=== PATIENT | female | born 1950 | race Caucasian/White ===

== ENCOUNTER 2020-02-13 15:59 | Emergency (ER) | payer MEDICARE, OTHER, SELFPAY ==
--- NOTE | 2020-02-13 16:26 | XR_ITS ---
WS: [id number] XR chest 1V portable [id number] REASON FOR EXAM: cough/congestion FINDINGS: Comparisons were made to May 14, 2014. The heart is not enlarged there is arteriosclerotic changes seen in the arch of the aorta. The lung manning are well aerated. There is no pneumonia, pleural effusion, pulmonary edema, no mass e ffect. XR/XR chest 1V portable [id number] IMPRESSION: Negative chest for active pathology Arteriosclerotic changes.
[2020-02-13 16:41] VITALS: BP 161/82; PULSE 82; RESP 20; TEMP 37.1; O2SAT 98; BMI 29.2
[2020-02-13 17:16] LABS: Basophils % 0.8 %; Eosinophils # 0.2 10^3/uL (0.0-0.8); Eosinophils % 3.2 %; Hematocrit 40.4 % (37.0-47.0); Hemoglobin 12.7 g/dL (11.5-15.3); Lymphocytes # 1.5 10^3/uL (0.8-4.8); Lymphocytes % 31.5 %; Mean Corpuscular HGB Conc 31.4 g/dL (30.0-36.0); Mean Corpuscular Hemoglobin 28.5 pg (28.0-34.0); Mean Corpuscular Volume 90.8 fL (81-99); Monocytes # 0.6 10^3/uL (0.2-0.9); Monocytes % 13.5 %; Neutrophils # 2.4 10^3/uL (1.8-7.7); Neutrophils % 50.8 %; Nucleated Red Blood Cells % 0 %; Platelet Count 279 10^3/cmm (130-400); Red Blood Count 4.45 10^6/uL (4.1-5.3); Red Cell Distribution Width 12.4 % (12.1-15.1); White Blood Count 4.7 10^3/uL (4.0-10.0)
[2020-02-13 17:40] LABS: Alanine Aminotransferase 14 U/L (0-33); Albumin Level 4.6 g/dL (3.5-5.2); Alkaline Phosphatase 72 IU/L (35-105); Anion Gap 15.9 (5-19); Aspartate Amino Transferase 19 U/L (0-32); Blood Urea Nitrogen 8 mg/dL (8-23); Calcium 9.8 mg/dL (8.5-10.5); Carbon Dioxide 29 mmol/L (22-29); Chloride 97 mmol/L (98-107); Glomerular Filtration Rate 83.2 mL/min (90-130); Glucose 110 mg/dL (65-115); Osmolality Calculated 283 mOsm/kg (285-295); Potassium 3.9 mmol/L (3.5-5.1); Sodium 138 mmol/L (136-145); Total Bilirubin 0.5 mg/dL (0.15-1.2); Total Protein 7.6 g/dL (6.6-8.7)
[2020-02-13 20:09] VITALS: BP 132/69; PULSE 73; RESP 18; O2SAT 96
[2020-02-13 21:17] VITALS: BP 162/79; PULSE 72; RESP 18; TEMP 36.9; O2SAT 97
--- NOTE | 2020-02-13 21:19 | W.ED.GENADLT ---
HPI - General Adult General: Chief complaint: Upper Respiratory Infection Stated complaint: sob/cough Time Seen by Provider: 02/13/20 21:13 History of Present Illness: HPI narrative: Patient with cough the last few days sinus drainage tickle in the throat. Denies any fever. Has history of allergies. Has not traveled to any endemic area or any area where covid 19 is present. Does not have any body aches. Cough is been somewhat nonproductive Onset (ago): day(s) Associated symptoms: Deny chest pain, dyspnea, fevers/chills, headache(s), nausea, rash or vomiting Review of Systems Const: Denies: fever, chills or body aches Eyes: Denies: change in vision or blurry vision ENMT: Reports: nasal discharge, nasal congestion and post nasal drip; Denies: throat pain Card: Denies: chest pain or shortness of breath on exertion Resp: Reports: non-productive cough; Denies: shortness of breath GI: Denies: abdominal pain, nausea or vomiting Musc: Denies: extremity pain Skin/Breast: Denies: rash Neuro: Denies: headache Psych: Denies: anxiety or depression Kenneth/Lymph: Denies: easy bruising PFSH ED PFSH: Social History Smoking and tobacco status: never smoked Physical Exam Narrative: EXAM NARRATIVE: Patient coughing while in room Const: COMMON NORMALS: no apparent distress, average body habitus and oriented x3 HENMT: COMMON NORMALS: normocephalic HEAD & SCALP: normal to inspection and normocephalic FACE & SINUS: sinus tenderness sphenoid and ethmoid Eye: COMMON NORMALS: conjunctivae normal GENERAL EYE: normal appearance of both eyes CONJUNCTIVA: Yes conjunctivae normal Neck/C-Spine: COMMON NORMALS: no JVD Chest: COMMONS NORMALS: inspection of chest normal Resp: COMMON NORMALS: normal respiratory effort and clear to auscultation bilaterally AUSCULTATION: clear to auscultation bilaterally Cardio: COMMON NORMALS: no JVD, regular rate and regular rhythm RATE: regular rate RHYTHM: regular rhythm GI: COMMON NORMALS: normal to inspection, nondistended, normoactive bowel sounds Extremity: COMMON NORMALS: normal to inspection and full ROM Neuro: COMMON NORMALS: oriented x3 Course Vital Signs: Vital signs: Vital Signs Temperature 98.8 F 02/13/20 16:41 Pulse Rate 73 02/13/20 20:09 Respiratory Rate 18 02/13/20 20:09 Blood Pressure 132/69 02/13/20 20:09 Pulse Oximetry 96 02/13/20 20:09 [facility] - General Adult Lab Data: Labs: Lab Results 02/13/20 02/13/20 Range/Units 16:58 16:58 WBC 4.7 (4.0-10.0) 10^3/ uL RBC 4.45 (4.1-5.3) 10^6/u L Hgb 12.7 (11.5-15.3) g/dL Hct 40.4 (37.0-47.0) % MCV 90.8 (81-99) fL MCH 28.5 (28.0-34.0) pg MCHC 31.4 (30.0-36.0) g/dL RDW 12.4 (12.1-15.1) % Plt Count 279 (130-400) 10^3/c mm MPV 10.0 (7.4-10.4) fL Neut % (Auto) 50.8 % Lymph % (Auto) 31.5 % Frontier % (Auto) 13.5 % Eos % (Auto) 3.2 % Baso % (Auto) 0.8 % Neut # (Auto) 2.4 (1.8-7.7) 10^3/u L Lymph # (Auto) 1.5 (0.8-4.8) 10^3/u L Frontier # (Auto) 0.6 (0.2-0.9) 10^3/u L Eos # (Auto) 0.2 (0.0-0.8) 10^3/u L Baso # (Auto) 0.0 (0.0-0.1) 10^3/u L Nucleated RBC % (a uto) 0 % Nucleated RBCs # 0.0 /100WBC Sodium 138 (136-145) mmol/L Potassium 3.9 (3.5-5.1) mmol/L Chloride 97 L (98-107) mmol/L Carbon Dioxide 29 (22-29) mmol/L Anion Gap 15.9 (5-19) BUN 8 (8-23) mg/dL Creatinine 0.7 (0.5-0.9) mg/dL GFR Calculation 83.2 L (90-130) mL/min Glucose 110 (65-115) mg/dL Calculated Osmolal ity 283 L (285-295) mOsm/k g Calcium 9.8 (8.5-10.5) mg/dL Total Bilirubin 0.5 (0.15-1.2) mg/dL AST 19 (0-32) U/L ALT 14 (0-33) U/L Alkaline Phosphata se 72 (35-105) IU/L Total Protein 7.6 (6.6-8.7) g/dL Albumin 4.6 (3.5-5.2) g/dL Globulin 3.0 (1.3-4.6) g/dL Discharge Plan Discharge Prescriptions: No Action clopidogrel 75 mg tablet 75 mg PO DAILY RF: 0 aspirin [Aspir-81] 81 mg Tablet,Delayed Release (Dr/Ec) 81 mg PO DAILY RF: 0 Fish Oil 300-1,000 mg Capsule 1 cap PO DAILY RF: 0 Nitrostat 0.4 mg Tablet, Sublingual 0.4 mg SUBLINGUAL Q5M PRN (Reason: Chest Pain) RF: 0 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
[2020-02-13] MEDS: sulfamethoxazole-trimeth DS 160-800 mg Tablet 1 TAB PO (21:28)
[2020-02-13] MEDS: benzonatate 100 mg Capsule 200 MG PO (21:28)
[2020-02-13 21:37] LABS: Influenza A by IFA Negative (Negative); Influenza B by IFA Negative (Negative)
[2020-02-13 22:00] VITALS: BP 159/76; PULSE 86; RESP 18; TEMP 37; O2SAT 94
== END 2020-02-13 22:02 | disposition home or self-care (01) ==
PROVIDERS: Physician Assistant; Emergency Provider Nurse Practitioner Family; Family Provider Internal Medicine; PCP Internal Medicine
DX: J06.9 Acute upper respiratory infection, unspecified (principal); R06.02 Shortness of breath; R05 Cough; R09.81 Nasal congestion; R09.82 Postnasal drip
CPT/HCPCS: 12345; 36415; 71045; 80053; 85025; 87804; 99281; 99283

== ENCOUNTER 2020-03-25 20:28 | Emergency (ER) | payer MEDICARE, OTHER, SELFPAY ==
--- NOTE | 2020-03-25 20:35 | XR_ITS ---
WS: [id number] LEFT TIBIA-FIBULA 2 VIEWS HISTORY: injury COMPARISON: None available. Comminuted fracture with displacement at the tibiotalar joint. Transverse fracture of the distal third of the fibula with the distal fracture site deviated medially . On the lateral projection the tibia is displaced anteriorly with respect to the talus and the fibula is displaced posteriorly with respect to the talus. There is an additional fracture through the tibia with avulsion of the posterior malleolus. XR/XR tibia fibula LT 2V [id number] IMPRESSION: 1. Acute trimalleolar fracture dislocation LEFT ankle. 2. Tibia is displaced anterior and the fibula is posterior with respect to the talus.
[2020-03-25 20:36] VITALS: BP 155/102; PULSE 101; RESP 18; TEMP 36.8; O2SAT 98; BMI 28.3
--- NOTE | 2020-03-25 20:36 | W.ED.LOWEXIN ---
Documented by User: JOMAR Teixeira 03/25/20 22:41 HPI - Extremity Injury (Lower) General: Chief Complaint: Extremity Injury, Lower Stated Complaint: ANKLE INJURY Time Seen by Provider: 03/25/20 20:35 Source: patient Mode of arrival: ambulatory Limitations: no limitations History of Present Illness: HPI Narrative: Patient comes in today for complaints of injury to the left lower extremity. Patient slipped on the grass and twisted her left lower leg. Patient reports pain and inability to bear weight to the left lower extremity. Patient has a history of coronary artery disease which she takes Plavix for. Patient appears well. Patient appears in moderate to severe pain. Review of Systems General: Reports: 10 or more systems reviewed and unremarkable except in HPI and below Musc: Reports: extremity pain (left lower leg) and extremity swelling [facility] ED PFSH: Social History Smoking and tobacco status: never smoked Physical Exam Const: COMMON NORMALS: no apparent distress and oriented x3 GENERAL APPEARANCE: cooperative HENMT: COMMON NORMALS: normocephalic, TM's normal bilaterally and external nose normal HEAD & SCALP: normal to inspection and normocephalic NOSE: external nose normal TYMPANIC MEMBRANE: TM's normal bilaterally MOUTH: oral and palatal mucosa normal THROAT: posterior oropharynx normal Eye: GENERAL EYE: normal appearance of both eyes Neck/C-Spine: COMMON NORMALS: full ROM Lymph: LYMPHATIC: no lymphadenopathy noted Chest: COMMONS NORMALS: inspection of chest normal Resp: COMMON NORMALS: normal respiratory effort EFFORT & INSPECTION: Yes able to speak in complete sentences Cardio: COMMON NORMALS: regular rate and regular rhythm RATE: regular rate RHYTHM: regular rhythm GI: COMMON NORMALS: non-tender : COMMON NORMALS: Yes no CVA tenderness BLADDER/KIDNEY EXAM: Yes no CVA tenderness Back/Pelvis: COMMON NORMALS: no CVA tenderness and thoracic and lumbar spine normal to inspection Extremity: COMMON NORMALS: normal to inspection NARRATIVE EXTREMITY EXAM: Left lower extremity has swelling and ecchymosis to the lateral lower leg. Pulses are intact in the dorsal pedis. Prompt capillary refill is noted. Neuro: COMMON NORMALS: oriented x3 and moves all extremities Psych: COMMON NORMALS: mental status grossly normal and cooperative Skin: COMMON NORMALS: no rashes or lesions noted GENERAL SKIN EXAM: no rashes or lesions noted Course ED course: 2099, reviewed xray with Dr. Sweeney regarding fracture dislocation of distal tib/fib. agreed with assessment and need for reduction of joint. Vital Signs: Vital signs: Vital Signs Temperature 98.2 F 03/25/20 20:36 Pulse Rate 69 03/25/20 23:38 Respiratory Rate 20 H 03/25/20 23:38 Blood Pressure 148/80 03/25/20 23:38 Pulse Oximetry 99 03/25/20 23:38 MDM - Extremity Injury (Lower) Lab Data: Labs: Lab Results 03/25/20 03/25/20 Range/Units 21:08 21:08 WBC 7.3 (4.0-10.0) 10^3/ uL RBC 4.13 (4.1-5.3) 10^6/u L Hgb 12.1 (11.5-15.3) g/dL Hct 37.1 (37.0-47.0) % MCV 89.8 (81-99) fL MCH 29.3 (28.0-34.0) pg MCHC 32.6 (30.0-36.0) g/dL RDW 12.3 (12.1-15.1) % Plt Count 286 (130-400) 10^3/c mm MPV 9.6 (7.4-10.4) fL Neut % (Auto) 56.1 % Lymph % (Auto) 34.5 % Campbell % (Auto) 7.0 % Eos % (Auto) 1.4 % Baso % (Auto) 0.5 % Neut # (Auto) 4.1 (1.8-7.7) 10^3/u L Lymph # (Auto) 2.5 (0.8-4.8) 10^3/u L Campbell # (Auto) 0.5 (0.2-0.9) 10^3/u L Eos # (Auto) 0.1 (0.0-0.8) 10^3/u L Baso # (Auto) 0.0 (0.0-0.1) 10^3/u L Nucleated RBC % (a uto) 0 % Nucleated RBCs # 0.0 /100WBC Sodium 137 (136-145) mmol/L Potassium 3.4 L (3.5-5.1) mmol/L Chloride 97 L (98-107) mmol/L Carbon Dioxide 23 (22-29) mmol/L Anion Gap 20.4 H (5-19) BUN 11 (8-23) mg/dL Creatinine 0.6 (0.5-0.9) mg/dL GFR Calculation 99.1 (90-130) mL/min Glucose 110 (65-115) mg/dL Calculated Osmolal ity 281 L (285-295) mOsm/k g Calcium 9.7 (8.5-10.5) mg/dL Total Bilirubin 0.4 (0.15-1.2) mg/dL AST 23 (0-32) U/L ALT 19 (0-33) U/L Alkaline Phosphata se 65 (35-105) IU/L Total Protein 7.7 (6.6-8.7) g/dL Albumin 4.4 (3.5-5.2) g/dL Globulin 3.3 (1.3-4.6) g/dL Discharge Plan Discharge Patient Disposition: Home, Self-Care Clinical Impression: Ankle fracture Qualifiers: Encounter type: initial encounter Fracture type: closed Laterality: left Qualified Code(s): S82.892A - Other fracture of left lower leg, initial encounter for closed fracture Condition: Stable Prescriptions: New Percocet 5-325 mg tablet 1 tab PO Q6H PRN (Reason: pain) Qty: 20 RF: 0 No Action clopidogrel 75 mg tablet 75 mg PO DAILY RF: 0 Aspir-81 81 mg Tablet,Delayed Release (Dr/Ec) 81 mg PO DAILY RF: 0 Fish Oil 300-1,000 mg Capsule 1 cap PO DAILY RF: 0 Nitrostat 0.4 mg Tablet, Sublingual 0.4 mg SUBLINGUAL Q5M PRN (Reason: Chest Pain) RF: 0 Tessalon Perles 100 mg capsule 100 mg PO TID PRN (Reason: cough) Qty: 20 RF: 0 Discharge Orders: Discharge Order (Routine); Ordered 03/25/20 Ordered By: Bert Sweeney Referrals: Lisha Ly MD [Physician] - 4-7 days Manuel Agarwal DO [Primary Care Provider] - Discharge Diet: Advance as tolerated Discharge Activity: Limit activity as instructed Patient Instructions: Ankle Fracture (ED) Activity Restrictions/Additional Instructions: No weightbearing for the left lower extremity. Use crutches. Stay in splint until seen by orthopedics. Ice frequently. you will need to call tomorrow for an appointment this week regarding your ankle fracture. Return for worsening pain despite treatment, numbness or tingling, other concerning symptoms. 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 Documented by User: Bert Sweeney DO 03/26/20 00:50 HPI - Extremity Injury (Lower) General: Chief Complaint: Extremity Injury, Lower Stated Complaint: ANKLE INJURY Time Seen by Provider: 03/25/20 20:35 [facility] ED PFSH: Social History Smoking and tobacco status: never smoked Procedures Procedural Sedation Indication: fracture/dislocation reduction ASA Class: II Preparation: pig conveyor operator applied, pulse oximeter, supplemental O2 applied, suction/airway equipment at bedside and IV secured Midazolam: IV Midazolam dose (mg): 1 IV Etomidate dose (mg): 15 Patient Tolerated Procedure: well and no complications Complications: none Course Vital Signs: Vital signs: Vital Signs Temperature 98.2 F 03/25/20 20:36 Pulse Rate 69 03/25/20 23:38 Respiratory Rate 20 H 03/25/20 23:38 Blood Pressure 148/80 03/25/20 23:38 Pulse Oximetry 99 03/25/20 23:38 MDM - Extremity Injury (Lower) MDM Narrative: Medical decision making narrative: This patient was originally seen by JOMAR Blackwell. I agree with his history, exam and workup. I have evaluated her as well. she has a fracture dislocation of the left ankle. It was reduced to good alignment. Her pain is much improved. She is in a posterior splint with medial lateral stirrup. She has good sensation. She will be allowed discharge to follow-up as an outpatient for probable ORIF. She had some pain after transferring to the car. She was given an injection of morphine and dispensed to Percocet until she can get her Percocet filled in the morning. Lab Data: Labs: Lab Results 03/25/20 03/25/20 Range/Units 21:08 21:08 WBC 7.3 (4.0-10.0) 10^3/ uL RBC 4.13 (4.1-5.3) 10^6/u L Hgb 12.1 (11.5-15.3) g/dL Hct 37.1 (37.0-47.0) % MCV 89.8 (81-99) fL MCH 29.3 (28.0-34.0) pg MCHC 32.6 (30.0-36.0) g/dL RDW 12.3 (12.1-15.1) % Plt Count 286 (130-400) 10^3/c mm MPV 9.6 (7.4-10.4) fL Neut % (Auto) 56.1 % Lymph % (Auto) 34.5 % Campbell % (Auto) 7.0 % Eos % (Auto) 1.4 % Baso % (Auto) 0.5 % Neut # (Auto) 4.1 (1.8-7.7) 10^3/u L Lymph # (Auto) 2.5 (0.8-4.8) 10^3/u L Campbell # (Auto) 0.5 (0.2-0.9) 10^3/u L Eos # (Auto) 0.1 (0.0-0.8) 10^3/u L Baso # (Auto) 0.0 (0.0-0.1) 10^3/u L Nucleated RBC % (a uto) 0 % Nucleated RBCs # 0.0 /100WBC Sodium 137 (136-145) mmol/L Potassium 3.4 L (3.5-5.1) mmol/L Chloride 97 L (98-107) mmol/L Carbon Dioxide 23 (22-29) mmol/L Anion Gap 20.4 H (5-19) BUN 11 (8-23) mg/dL Creatinine 0.6 (0.5-0.9) mg/dL GFR Calculation 99.1 (90-130) mL/min Glucose 110 (65-115) mg/dL Calculated Osmolal ity 281 L (285-295) mOsm/k g Calcium 9.7 (8.5-10.5) mg/dL Total Bilirubin 0.4 (0.15-1.2) mg/dL AST 23 (0-32) U/L ALT 19 (0-33) U/L Alkaline Phosphata se 65 (35-105) IU/L Total Protein 7.7 (6.6-8.7) g/dL Albumin 4.4 (3.5-5.2) g/dL Globulin 3.3 (1.3-4.6) g/dL Discharge Plan Discharge Patient Disposition: Home, Self-Care Clinical Impression: Ankle fracture Qualifiers: Encounter type: initial encounter Fracture type: closed Laterality: left Qualified Code(s): S82.892A - Other fracture of left lower leg, initial encounter for closed fracture Condition: Stable Prescriptions: New Percocet 5-325 mg tablet 1 tab PO Q6H PRN (Reason: pain) Qty: 20 RF: 0 No Action clopidogrel 75 mg tablet 75 mg PO DAILY RF: 0 Aspir-81 81 mg Tablet,Delayed Release (Dr/Ec) 81 mg PO DAILY RF: 0 Fish Oil 300-1,000 mg Capsule 1 cap PO DAILY RF: 0 Nitrostat 0.4 mg Tablet, Sublingual 0.4 mg SUBLINGUAL Q5M PRN (Reason: Chest Pain) RF: 0 Tessalon Perles 100 mg capsule 100 mg PO TID PRN (Reason: cough) Qty: 20 RF: 0 Discharge Orders: Discharge Order (Routine); Ordered 03/25/20 Ordered By: Bert Sweeney Referrals: Lisha Ly MD [Physician] - 4-7 days Manuel Agarwal DO [Primary Care Provider] - Discharge Diet: Advance as tolerated Discharge Activity: Limit activity as instructed Patient Instructions: Ankle Fracture (ED) Activity Restrictions/Additional Instructions: No weightbearing for the left lower extremity. Use crutches. Stay in splint until seen by orthopedics. Ice frequently. you will need to call tomorrow for an appointment this week regarding your ankle fracture. Return for worsening pain despite treatment, numbness or tingling, other concerning symptoms. 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
[2020-03-25 20:46] VITALS: RESP 16; O2SAT 96
[2020-03-25] MEDS: morphine 4 mg/mL SDV 1 mL 2 MG IVP (20:46)
[2020-03-25] MEDS: ondansetron 2 mg/ML SDV 2 mL 4 MG IVP (20:47)
--- NOTE | 2020-03-25 21:02 | XR_ITS ---
WS: [id number] PELVIS: AP VIEW SUBMITTED HISTORY: fall COMPARISON: 02/08/2012 Possible avulsion fracture from the greater trochanter. There is an osseous or calcific density in th e soft tissues lateral to the greater tuberosity which was not present on the prior study. XR/XR pelvis 1-2V* [id number] IMPRESSION: Possible avulsion fracture in the soft tissues just lateral to the LEFT greater trochanter. This was not present on the prior study. If patient has continued pain at the LEFT hip consider follow-up radiographs or CT of the LEFT hip.
--- NOTE | 2020-03-25 21:02 | XR_ITS ---
WS: [id number] PORTABLE CHEST HISTORY: fall COMPARISON: 02/13/2020 Mild pulmonary hyperexpansion. No pneumonia. No pleural effusion or pneumothorax. Cardiac size: Normal. Mediastinum/Aorta: Normal mediastinum. No osseous abnormality seen. XR/XR chest 1V portable [id number] IMPRESSION: Chronic emphysema with no pneumonia.
[2020-03-25 21:14] LABS: Basophils % 0.5 %; Eosinophils # 0.1 10^3/uL (0.0-0.8); Eosinophils % 1.4 %; Hematocrit 37.1 % (37.0-47.0); Hemoglobin 12.1 g/dL (11.5-15.3); Lymphocytes # 2.5 10^3/uL (0.8-4.8); Lymphocytes % 34.5 %; Mean Corpuscular HGB Conc 32.6 g/dL (30.0-36.0); Mean Corpuscular Hemoglobin 29.3 pg (28.0-34.0); Mean Corpuscular Volume 89.8 fL (81-99); Mean Platelet Volume 9.6 fL (7.4-10.4); Monocytes # 0.5 10^3/uL (0.2-0.9); Neutrophils # 4.1 10^3/uL (1.8-7.7); Neutrophils % 56.1 %; Nucleated Red Blood Cells % 0 %; Platelet Count 286 10^3/cmm (130-400); Red Blood Count 4.13 10^6/uL (4.1-5.3); Red Cell Distribution Width 12.3 % (12.1-15.1); White Blood Count 7.3 10^3/uL (4.0-10.0)
--- NOTE | 2020-03-25 21:14 | XR_ITS ---
WS: [id number] LEFT ANKLE: 2 VIEW(S) TECHNIQUE: AP and lateral. HISTORY: post-reduction COMPARISON: 03/25/2020 Status post reduction of the fracture dislocation. Significant improvement in alignment. Distal tibia and fibula are now in normal alignment with the ta constantino. Fracture dislocation alignment of the distal fibula and tibia with the talus have been improved. Large amount of soft tissue edema around the ankle. XR/XR ankle LT 2V [id number] IMPRESSION: Significant improvement in the fracture dislocation alignment since the study asuncion hairston the same day.
[2020-03-25] MEDS: midazolam 1 mg/mL INJ 2 mL IVP (21:45)
[2020-03-25 21:49] LABS: Alanine Aminotransferase 19 U/L (0-33); Albumin Level 4.4 g/dL (3.5-5.2); Alkaline Phosphatase 65 IU/L (35-105); Anion Gap 20.4 (5-19); Aspartate Amino Transferase 23 U/L (0-32); Blood Urea Nitrogen 11 mg/dL (8-23); Calcium 9.7 mg/dL (8.5-10.5); Carbon Dioxide 23 mmol/L (22-29); Chloride 97 mmol/L (98-107); Globulin 3.3 g/dL (1.3-4.6); Glomerular Filtration Rate 99.1 mL/min (90-130); Glucose 110 mg/dL (65-115); Osmolality Calculated 281 mOsm/kg (285-295); Potassium 3.4 mmol/L (3.5-5.1); Sodium 137 mmol/L (136-145); Total Bilirubin 0.4 mg/dL (0.15-1.2); Total Protein 7.7 g/dL (6.6-8.7)
--- NOTE | 2020-03-25 21:50 | PC.NURSE ---
Pt's left ankle reduced by MD. Pt. tolerated well. Post reduction x-ray in progress at bedside
[2020-03-25] MEDS: sodium chloride 0.9% 1,000 ML 250 ML IV (21:51)
[2020-03-25 21:53] VITALS: BP 178/100; PULSE 75; RESP 17; O2SAT 98
[2020-03-25] MEDS: HYDROcodone-acetaminophen 7.5-325 mg Tablet 1 TAB PO (22:55)
[2020-03-25 23:37] VITALS: RESP 20
[2020-03-25] MEDS: morphine 4 mg/mL SDV 1 mL IM (23:37)
[2020-03-25 23:38] VITALS: BP 148/80; PULSE 69; RESP 20; O2SAT 99
--- NOTE | 2020-03-27 11:29 | DCPLANNER ---
workshop manager had message to schedule a follow up appointment for patient with ortho. workshop manager called the ortho clinic, spoke with Pat, gave clinic patients information. workshop manager was told that patients information would be printed and reviewed. Clinic will call director case and patient with appointment information.
--- NOTE | 2020-03-29 12:47 | DCPLANNER ---
Patient had a follow up appointment scheduled for 03.28.[facility] with [facility]. Gallardo. Patient did attend the appointment.
== END 2020-03-25 23:40 | disposition home or self-care (01) ==
PROVIDERS: Nurse Practitioner Family; Emergency Provider Emergency Medicine; Family Provider Internal Medicine; PCP Internal Medicine
DX: S82.852A Displaced trimalleolar fracture of left lower leg, initial encounter for closed fracture (principal); W01.0XXA Fall on same level from slipping, tripping and stumbling without subsequent striking against object, initial encounter; Z79.02 Long term (current) use of antithrombotics/antiplatelets; Z79.82 Long term (current) use of aspirin
CPT/HCPCS: 12345; 27818; 71045; 72170; 73590; 73600; 80053; 85025; 96372; 96374; 96375; 99282; 99283; 99284; J2250; J2270; J2405; J3490; J7030

== ENCOUNTER 2020-03-28 16:42 | Outpatient (CLI) | payer MEDICARE, OTHER, SELFPAY | END 2020-03-28 16:43 | disposition home or self-care (01) | LOC: SPT 16:45 | PROVIDERS: Family Provider Internal Medicine; PCP Internal Medicine; Visit Provider Orthopaedic Surgery | DX: Z46.89 Encounter for fitting and adjustment of other specified devices (principal); S82.402D Unspecified fracture of shaft of left fibula, subsequent encounter for closed fracture with routine healing; S82.432D Displaced oblique fracture of shaft of left fibula, subsequent encounter for closed fracture with routine healing; X58.XXXD Exposure to other specified factors, subsequent encounter | CPT/HCPCS: L4361 ==

== ENCOUNTER → 2020-04-04 15:27 | Outpatient (BNVA) | payer MEDICARE, OTHER, SELFPAY | PROVIDERS: Family Provider Internal Medicine; PCP Internal Medicine; Visit Provider Orthopaedic Surgery | DX: S82.842A Displaced bimalleolar fracture of left lower leg, initial encounter for closed fracture (principal); S82.852A Displaced trimalleolar fracture of left lower leg, initial encounter for closed fracture | CPT/HCPCS: 73610 ==

== ENCOUNTER 2020-04-09 10:25 | Day surgery (SDC) | payer MEDICARE, OTHER, SELFPAY ==
[2020-04-04 12:32] VITALS: BMI 29.2
[2020-04-09] VITALS (11 sets, daily range): BP systolic 130–170; BP diastolic 68–82; PULSE 64–73; RESP 15–20; TEMP 36.1–36.6; O2SAT 93–99
--- NOTE | 2020-04-09 | SCC_ITS ---
Procedure Done: Open reduction internal fixation left lateral malleolus fracture 22.1 seconds of fluoroscopic guidance, for a cumulative dose of 1.20 mGy, was provided to Dr. Gallardo by the radiology department. C-arm images of the LEFT ankle were saved for the patient's permanent record. GUTHRI[facility]ORT[facility] MEDICAL CENTERGeoffrey
[2020-04-09] MEDS: midazolam 1 mg/mL INJ 2 mL 2 MG IVP (09:10)
[2020-04-09] MEDS: sodium chloride 0.9% 1,000 ML 30 ML IV (12:05)
--- NOTE | 2020-04-09 12:06 | ANES.PREANE2 ---
Pre-Anesthetic Assessment Pre-Anesthetic Assessment: Height/Weight: Height 1.6 m Weight 74.843 kg Temp Pulse Resp BP Pulse Ox 97 F L 65 18 170/75 97 04/09/20 11:42 04/09/20 11:42 04/09/20 11:42 04/09/20 11:42 04/09/20 11:42 Preop Diagnosis: left bimallolar ankle fracture Proposed Procedure: Operation Date: 04/09/20 13:25 Proposed Procedures p ORIF Left Fibular shaft poss syndesmosis repair [id number] S82.842A s93.439A(Left) - Ludwin Gallardo DO Familial anesthetic complications: trouble waking up Plavix 10 days ago Was Beta Sea taken within 24 hours: N/A Last intake: Intake Last Liquid Date 04/08/20 Last Liquid Time 23:50 Last Solid Date 04/08/20 Last Solid Time 22:00 Social: Social History: No alcohol and No tobacco Exam: Pre-Anes Outpt Exam: alert, oriented x 3, clear to auscultation bilaterally and regular rate & rhythm Airway: Cervical ROM: WNL MP: 3 Dentition: False Pulmonary: Pulmonary: None reported CV/HEM: CV/HEM: Afib, CAD (3 stents; last one 2004) and [place] (X3) : : None reported Hepatic: Hepatic: None reported GI: GI: None reported Metabolic: Metabolic: None reported Musc/skel: Comments: L fibular fracture Neuropsych: Neuropsych: None reported Anesthetic Plan: ASA status: 3 Anesthesia: General and Regional (specify below) (popliteal) Risk of > 500 ml blood loss (7ml/kg in children): No Meds/Allergies Current Medications: Current Medications Generic Name Dose Route Start Last Admin Trade Name Freq PRN Reason Stop Dose Admin Sodium Chloride 1,000 mls @ 30 ml s/hr 04/09/20 11:15 04/09/20 12:05 Sodium Chloride 0.9% IV 04/10/20 11:14 30 mls/hr .Q24H SULEMAN Administration PFSH Anesthesia PFSH: Social History Smoking and tobacco status: never smoked Alcohol intake: never Data Anesthesia Cardiac Studies: No Data to Display
[2020-04-09] MEDS: fentaNYL 50 mcg/mL INJ 2mL IVP ×2 (12:15→14:52)
--- NOTE | 2020-04-09 12:27 | ANES.PROC ---
Anesthesia Procedures Procedure/Date: 04/09/20 Nerve Block ^: Nerve Block 1: Main Anesthesia: general anesthesia Time Out Performed: Yes Consent: requested by attending/covering physician, from patient, risks and benefits reviewed and patient agrees to proceed Nerve block location: popliteal (L) Anesthesia monitors applied: pulse oximetry, BP cuff and oxygen Nerve block position: supine Anesthetic Used: ropivicaine 0.5% and with bicarb (4) Amount of anesthesia used (mL): 20 Ultrasound used to: recognize landmarks Nerve Stimulator Used?: No Interscalene/Femoral BLK: 4 stimuplex 21 g needle used for position and inplane approach Injection: neg aspiration of heme and paresthesia +/- Patient Tolerated Procedure: well Complications: none
[2020-04-09] MEDS: cefUROXime 1,500 MG in sodium chloride 0.9% (plus) 50 ML 100 MG IV (13:12)
--- NOTE | 2020-04-09 13:40 | SUR.OPER ---
Family Notified Of Patient's Status Via Phone.
[2020-04-09] MEDS: neomycin-poly-bacitracin oint 28 gm 1 APPLIC TOPICAL (13:52)
--- NOTE | 2020-04-09 14:26 | XR_ITS ---
WS: [id number] C-ARM RADIOGRAPHS LEFT ANKLE; 4 IMAGES HISTORY: OR PICS COMPARISON: None available. Plate and screw fixation stabilizing the distal fibular fracture in good alignment. There is a syndes mosis screw with button attachment. XR/XR ankle LT min 3V* [id number] IMPRESSION: Status post ORIF distal fibular fracture.
--- NOTE | 2020-04-09 14:45 | SUR.PHASEI ---
1440 PATIENT TO PACU AT THIS TIME FROM OR. ORAL AIRWAY IN PLACE, SPO2 97% ON SIMPLE MASK AT 8L. DRESSING INTACT TO LEFT ANKLE.
--- NOTE | 2020-04-09 14:58 | SUR.PHASEI ---
1452 ORAL AIRWAY REMOVED AT THIS TIME. SPO2 97% ON SIMPLE MASK AT 8L. RR EVEN AND UNLABORED.
--- NOTE | 2020-04-09 15:11 | SUR.PHASEI ---
[id number] PATIENT TO OPS AT THIS TIME. RR EVEN AND UNLABORED. TOLERATING ICE CHIPS, DENIES NAUSEA. PAIN 6/10, WANTING A PAIN PILL IN OPS. DRESSING INTACT TO LEFT ANKLE, CAP REFILL INTACT.
[2020-04-09] MEDS: oxyCODONE-APAP 5-325 mg Tablet 1 TAB PO (15:50)
--- NOTE | 2020-04-11 21:33 | P.OP_ITS ---
Operative Report Date of procedure: April 09, 2020 Pre-op Diagnosis: left bimalleolar ankle fracture Post-op diagnosis: other Post-op Diagnosis: left bimalleolar ankle fracture (posterior malleolus and lateral malleolus?Brenner C fracture of distal fibula Sprain distal tibiofibular joint Post-op Findings: satisfactory reduction of displaced lateral malleolus fracture Good alignment of posterior malleolar fracture satisfactory placement of implants Symmetric spacing about ankle mortise Procedure Done: Open reduction internal fixation left lateral malleolus fracture closed treatment without manipulation of left posterior malleolar fracture Open reduction internal fixation left distal tibiofibular joint Implants: Rachana on third semitubular plate and screws Arthrex tight rope button suspension device Specimens removed/disposition: none Pathology: none sent Surgeon: Ludwin Gallardo Anesthesia: General and Nerve Block (preoperative popliteal block for postoper ative pain relief) Estimated blood loss (mL): 10 Tourniquet time (min): 45 (300 mmHg pressure) Complications: no apparent complications Findings: see above postoperative findings Condition: stable Disposition: PACU Brief History: 70-year-old white female who slipped and fell on 03/25/2021 [place] she sustained a bimalleolar ankle fracture dislocation. Closed reduction was performed in the emergency room. She was seen in the orthopedic clinic in our he had developed swelling in fracture bleb so her surgery needed to be delayed until her skin was appropriate for surgery. She was evaluated on the date of surgery and found to have a marked decreased swelling fracture bleb on the medial aspect of her ankle has resolved. Risks, benefits has complications surgery discussed the patient. Risks include aren't limited to infection, nerve/blood vessel/tendon injury, failure fractures to heal potential loss reduction, complications with hardware such as breakage or loosening. May develop posttraumatic arthritis in her ankle as result of her injury. Medical complications can include blood clots, heart attack, stroke risk up to including . All questions were answered patient agreeable to proceed with surgery. Procedure: Patient identified. Surgical site was signed. Surgical permit was signed. Anesthesia team performed a preoperative popliteal block for postoperative pain relief. Patient received 1.5 g of Zinacef intravenously for surgical prophylaxis. She was taken to the operating room. She is placed supine on the operating room table. She is placed under general anesthesia without difficulty. A tourniquet was placed but the upper aspect of the left lower extremity. The patient sterilely prepped draped usual fashion. The operative limb was exsanguinated using Esmarch bandage tourniquet inflated to 300 mmHg pressure. A 15 cm incision was made over the lateral malleolus and distal fibular shaft. Full-thickness skin flaps were made. Dissection is carried down sharply to the fracture site. The fracture site was identified. Using a tenaculum bone-holding forceps extraction the fracture site was curetted of fracture hematoma and interposed soft tissue. The fractures then reduced and held reduced using bone-holding forceps. The 7-hole one third semitubular plate was selected. The plate was held in place using K wires. We then placed a compression screws on either side of the fracture. We then placed locking screws proximally and distally. The left one of the holes distally for placement of a button suspension device. We used a guidewire followed by a cannulated drill bit and then deployed an Arthrex tight rope device across the distal tibiofibular joint. The button suspension device was tightened in place. Symmetric spacing was noted about the ankle mortise. Improved spacing is been widened at the distal tip joint was improved following the placement of the button suspension device and tightening in place. Fluoroscopic images demonstrated that the posterior malleolar fracture was in satisfactory position. Plate and screws were appropriately placed. The incision was irrigated with antibiotic containing saline solution. Incision was then closed in layers with rafal and sutures on skin. We injected the incision with 20 mL of a one-to-one mixture 1% lidocaine with epinephrine and half percent Marcaine. Anabolic was applied followed by sterile dressings and the patient was placed in a well-padded posterior splint with stirrup augment. The tourniquet had been deflated during application of dressings. The patient was aroused from general anesthesia. She was taken to recovery room. All counts are correct. She tolerated the procedure well
== END 2020-04-09 16:15 | disposition home or self-care (01) ==
PROVIDERS: Family Provider Internal Medicine; PCP Internal Medicine; Visit Provider Orthopaedic Surgery
PROC: 0QSK04Z Reposition Left Fibula with Internal Fixation Device, Open Approach (ICD-10-PCS; CPT 27828; principal; 2020-04-09 13:25)
DX: S82.842A Displaced bimalleolar fracture of left lower leg, initial encounter for closed fracture (principal); X50.1XXA Overexertion from prolonged static or awkward postures, initial encounter; Z79.82 Long term (current) use of aspirin; Z79.891 Long term (current) use of opiate analgesic; I48.91 Unspecified atrial fibrillation; I25.10 Atherosclerotic heart disease of native coronary artery without angina pectoris; Z95.5 Presence of coronary angioplasty implant and graft; I25.2 Old myocardial infarction
CPT/HCPCS: 27769; 27792; 27829; 12345; 73610; 76000; 96374; 96375; C1713; J0697; J1100; J1580; J2001; J2250; J2370; J2405; J2704; J2795; J3010; J3490; J7030

== ENCOUNTER → 2020-04-25 09:09 | Outpatient (BNVA) | payer MEDICARE, OTHER, SELFPAY | PROVIDERS: Family Provider Internal Medicine; PCP Internal Medicine; Visit Provider Orthopaedic Surgery | DX: S82.842A Displaced bimalleolar fracture of left lower leg, initial encounter for closed fracture (principal); W01.0XXA Fall on same level from slipping, tripping and stumbling without subsequent striking against object, initial encounter | CPT/HCPCS: 73610 ==

== ENCOUNTER → 2020-05-09 10:03 | Outpatient (BNVA) | payer MEDICARE, OTHER, SELFPAY | PROVIDERS: Family Provider Internal Medicine; PCP Internal Medicine; Visit Provider Orthopaedic Surgery | DX: S82.842A Displaced bimalleolar fracture of left lower leg, initial encounter for closed fracture (principal); X58.XXXA Exposure to other specified factors, initial encounter | CPT/HCPCS: 73610 ==

== ENCOUNTER → 2020-05-23 09:08 | Outpatient (BNVA) | payer MEDICARE, OTHER, SELFPAY | PROVIDERS: Family Provider Internal Medicine; PCP Internal Medicine; Visit Provider Orthopaedic Surgery | DX: S82.842D Displaced bimalleolar fracture of left lower leg, subsequent encounter for closed fracture with routine healing (principal); W01.0XXD Fall on same level from slipping, tripping and stumbling without subsequent striking against object, subsequent encounter; Z48.89 Encounter for other specified surgical aftercare | CPT/HCPCS: 73610 ==

== ENCOUNTER 2020-05-23 14:01 | Outpatient (CLI) | payer MEDICARE, OTHER, SELFPAY | END 2020-05-23 14:02 | disposition home or self-care (01) | LOC: SPT 14:02 | PROVIDERS: Family Provider Internal Medicine; PCP Internal Medicine; Visit Provider Orthopaedic Surgery | DX: Z48.89 Encounter for other specified surgical aftercare (principal); S82.842D Displaced bimalleolar fracture of left lower leg, subsequent encounter for closed fracture with routine healing; X58.XXXD Exposure to other specified factors, subsequent encounter; W01.0XXD Fall on same level from slipping, tripping and stumbling without subsequent striking against object, subsequent encounter | CPT/HCPCS: 73610; 80061; 97760; L1902 ==

== ENCOUNTER 2020-05-30 10:26 | Outpatient (RCR) | payer MEDICARE, OTHER, SELFPAY | END 2020-06-29 23:59 | disposition home or self-care (01) | LOC: SPT 10:26 | PROVIDERS: PCP Internal Medicine; Referring Provider Orthopaedic Surgery; Visit Provider Orthopaedic Surgery | DX: S82.842D Displaced bimalleolar fracture of left lower leg, subsequent encounter for closed fracture with routine healing (principal); X58.XXXD Exposure to other specified factors, subsequent encounter | CPT/HCPCS: 97110; 97112; 97116; 97162 ==

== ENCOUNTER 2020-06-08 10:38 | Outpatient (CLI) | payer MEDICARE, OTHER, SELFPAY ==
--- NOTE | 2020-06-08 10:45 | XRR_ITS ---
PROCEDURE INFORMATION: Exam: XR Left Ankle Exam date and time: 06/08/2020 11:14 AM Age: 70 years old Clinical indication: Foot; Left; Prior surgery; Surgery date: 1-6 months; Surgery type: Injury resulting in surgery February 2020 continued pain and swelling, recheck; Additional info: Ankle pain TECHNIQUE: Imaging protocol: XR Left ankle. Views: 3 or more views. COMPARISON: CR (LOW EXM, ) 05/23/2020 9:14 AM FINDINGS: Bones/joints: Status post ORIF of distal tibial and fibular fractures, with an incompletely healed fracture of the posterior tibial plafond. Osteopenia. Sclerosis of the talar dome raising the possibility of avascular necrosis. Soft tissues: Mild soft tissue swelling. XR/XR ankle LT min 3V* [id number] IMPRESSION: 1. Status post ORIF of distal tibial and fibular fractures, with an incompletely healed fracture of the posterior tibial plafond. 2. Sclerosis of the talar dome raising the possibility of avascular necrosis.
--- NOTE | 2020-06-08 10:45 | XRR_ITS ---
PROCEDURE INFORMATION: Exam: XR Left Calcaneus Exam date and time: 06/08/2020 11:18 AM Age: 70 years old Clinical indication: Heel; Left; Prior surgery; Surgery date: 1-6 months; Patient HX: Injury resulting in surgery February 2020 continued pain and swelling, recheck; Additional info: Heel pain TECHNIQUE: Imaging protocol: XR of the Left calcaneus. Views: 2 or more views. COMPARISON: CR XR ankle LT min 3V* [id number] 06/08/2020 11:10 AM FINDINGS: Bones/joints: Sclerosis of the talar dome suspicious for avascular necrosis. Osteopenia. Soft tissues: Mild soft tissue swelling. XR/XR calcaneus LT min 2V [id number] IMPRESSION: Sclerosis of the talar dome suspicious for avascular necrosis.
== END 2020-06-08 10:39 | disposition home or self-care (01) ==
LOC: RAD 10:42
PROVIDERS: PCP Internal Medicine; Visit Provider Orthopaedic Surgery
DX: M25.572 Pain in left ankle and joints of left foot (principal); M79.672 Pain in left foot; S82.292A Other fracture of shaft of left tibia, initial encounter for closed fracture; X58.XXXA Exposure to other specified factors, initial encounter
CPT/HCPCS: 73610; 73650

== ENCOUNTER → 2020-06-20 08:46 | Outpatient (BNVA) | payer MEDICARE, OTHER, SELFPAY | PROVIDERS: PCP Internal Medicine; Visit Provider Orthopaedic Surgery | DX: S82.842A Displaced bimalleolar fracture of left lower leg, initial encounter for closed fracture (principal); Z48.89 Encounter for other specified surgical aftercare; X58.XXXA Exposure to other specified factors, initial encounter | CPT/HCPCS: 73610 ==

== ENCOUNTER 2020-06-30 06:00 | Outpatient (RCR) | payer MEDICARE, OTHER, SELFPAY | END 2020-07-30 23:59 | disposition home or self-care (01) | LOC: SPT 06:00 | PROVIDERS: PCP Internal Medicine; Referring Provider Orthopaedic Surgery; Visit Provider Orthopaedic Surgery | DX: Z47.89 Encounter for other orthopedic aftercare (principal); S82.842D Displaced bimalleolar fracture of left lower leg, subsequent encounter for closed fracture with routine healing; X58.XXXD Exposure to other specified factors, subsequent encounter | CPT/HCPCS: 97110; 97112; 97116 ==

== ENCOUNTER 2020-07-31 06:00 | Outpatient (RCR) | payer MEDICARE, OTHER, SELFPAY | END 2020-08-29 23:59 | disposition home or self-care (01) | LOC: SPT 06:00 | PROVIDERS: PCP Internal Medicine; Referring Provider Orthopaedic Surgery; Visit Provider Orthopaedic Surgery | DX: S82.842D Displaced bimalleolar fracture of left lower leg, subsequent encounter for closed fracture with routine healing (principal); X58.XXXD Exposure to other specified factors, subsequent encounter | CPT/HCPCS: 97110; 97112; 97116 ==

== ENCOUNTER → 2020-08-13 14:47 | Outpatient (BNVA) | payer MEDICARE, OTHER, SELFPAY | PROVIDERS: PCP Internal Medicine; Visit Provider Specialist | DX: S82.842A Displaced bimalleolar fracture of left lower leg, initial encounter for closed fracture (principal); X58.XXXA Exposure to other specified factors, initial encounter | CPT/HCPCS: 73610 ==

== ENCOUNTER → 2020-11-15 09:40 | Outpatient (BNVA) | payer MEDICARE, OTHER, SELFPAY | PROVIDERS: PCP Internal Medicine; Visit Provider Internal Medicine Cardiovascular Disease | DX: E78.5 Hyperlipidemia, unspecified (principal) | CPT/HCPCS: 80061; 80076 ==

== ENCOUNTER → 2022-06-13 09:56 | Outpatient (BNVA) | payer MEDICARE, OTHER, SELFPAY | PROVIDERS: Visit Provider Family Medicine Adult Medicine | DX: I10 Essential (primary) hypertension (principal); I25.10 Atherosclerotic heart disease of native coronary artery without angina pectoris; E78.5 Hyperlipidemia, unspecified; Z13.6 Encounter for screening for cardiovascular disorders | CPT/HCPCS: 80053; 80061; 84443; 85025 ==

== ENCOUNTER → 2022-07-23 14:59 | Outpatient (BNVA) | payer MEDICARE, OTHER, SELFPAY | PROVIDERS: PCP Family Medicine Adult Medicine; Visit Provider Internal Medicine Cardiovascular Disease | DX: I25.10 Atherosclerotic heart disease of native coronary artery without angina pectoris (principal); R09.89 Other specified symptoms and signs involving the circulatory and respiratory systems; E78.5 Hyperlipidemia, unspecified; G47.33 Obstructive sleep apnea (adult) (pediatric); I10 Essential (primary) hypertension | CPT/HCPCS: 93005; 99214 ==

== ENCOUNTER 2022-08-19 11:04 | Outpatient (CLI) | payer MEDICARE, OTHER, SELFPAY ==
--- NOTE | 2022-08-19 11:15 | USCV_ITS ---
Stephanie Weller Age: 72 Gender: F : 1950 Exam Date: 08/19/2022 11:13 Ordering Phys: Beverley Galeana MD [email or web address] Technologist: Ubaldo Moore [place] [facility] [place]: cca stenosis Risk Factors: None Previous Vascular Surgery: Right Brachial BP: / Left Brachial BP: / Right Left Velocity (cm/s) Spectral Plaque Velocity (cm/s) Spectral Plaque Syst/Diast Broadening Syst/Diast Broadening 63.90/ 8.80 Prox CCA 79.20 / 10.90 76.10/ 16.50 Mid CCA 96.30 / 15.50 65.10/ 9.90 Hetro Distal CCA 132.10/ 26.40 Hetro 93.20/ 18.60 Hetro Prox ICA 122.70/ 15.50 Hetro 130.50/32.60 Hetro Mid ICA 85.40 / 21.80 Hetro 119.60/28.00 Distal ICA 110.30/ 28.00 133.60 ECA 150.70 1.72 ICA/CCA 0.93 Antegrade Vertebral Antegrade 80.80/ 20.20 cm/s 73.00/ 15.50 cm/s Bi Subclavian Bi 115.0 155.4 0 0 FINDINGS Moderate heterogenous plaques at the bifurcations and proximal aortic root arteries bilaterally. Intimal thickening in the common carotid arteries bilaterally. Antegrade flow in the vertebral arteries bilaterally. Normal Doppler flow velocities in the external carotid arteries and subclavian arteries bilaterally. CONCLUSIONS Moderate heterogenous plaques at the bifurcations and proximal aortic root arteries bilaterally with velocity elevations, consistent with less than 50% stenosis. Intimal thickening in the common carotid arteries bilaterally. No similar previous studies are available for comparison Dr Beverley Galeana MD [facility] (Electronically Signed) Final Date: 21 August 2022 08:24 S
== END 2022-08-19 11:05 | disposition home or self-care (01) ==
LOC: RAD 11:05
PROVIDERS: PCP Family Medicine Adult Medicine; Visit Provider Internal Medicine Cardiovascular Disease
DX: R09.89 Other specified symptoms and signs involving the circulatory and respiratory systems (principal); I65.23 Occlusion and stenosis of bilateral carotid arteries
CPT/HCPCS: 93880

== ENCOUNTER → 2022-10-01 08:54 | Outpatient (BNVA) | payer MEDICARE, OTHER, SELFPAY | PROVIDERS: PCP Family Medicine Adult Medicine; Visit Provider Podiatrist Foot & Ankle Surgery | DX: T84.84XA Pain due to internal orthopedic prosthetic devices, implants and grafts, initial encounter (principal); Y79.2 Prosthetic and other implants, materials and accessory orthopedic devices associated with adverse incidents | CPT/HCPCS: 73610; 99204 ==

== ENCOUNTER → 2022-11-19 08:40 | Outpatient (BNVA) | payer MEDICARE, OTHER, SELFPAY | PROVIDERS: PCP Family Medicine Adult Medicine; Visit Provider Podiatrist Foot & Ankle Surgery | DX: T84.84XA Pain due to internal orthopedic prosthetic devices, implants and grafts, initial encounter (principal); Y79.2 Prosthetic and other implants, materials and accessory orthopedic devices associated with adverse incidents | CPT/HCPCS: 99214 ==

== ENCOUNTER → 2023-02-17 11:15 | Outpatient (BNVA) | payer MEDICARE, OTHER, SELFPAY | PROVIDERS: PCP Family Medicine Adult Medicine; Visit Provider Internal Medicine Cardiovascular Disease | DX: I25.10 Atherosclerotic heart disease of native coronary artery without angina pectoris (principal); G47.33 Obstructive sleep apnea (adult) (pediatric); I10 Essential (primary) hypertension; E78.5 Hyperlipidemia, unspecified; R00.2 Palpitations | CPT/HCPCS: 93005; 99214 ==

== ENCOUNTER → 2023-03-18 10:32 | Outpatient (BNVA) | payer MEDICARE, OTHER, SELFPAY | PROVIDERS: PCP Family Medicine Adult Medicine; Visit Provider Family Medicine Adult Medicine | DX: E78.5 Hyperlipidemia, unspecified (principal); H26.9 Unspecified cataract; I10 Essential (primary) hypertension; M79.7 Fibromyalgia; I25.10 Atherosclerotic heart disease of native coronary artery without angina pectoris; H83.2X3 Labyrinthine dysfunction, bilateral; T84.84XA Pain due to internal orthopedic prosthetic devices, implants and grafts, initial encounter; Y99.9 Unspecified external cause status | CPT/HCPCS: 85651; 86140 ==

== ENCOUNTER 2023-04-24 05:37 | Day surgery (SDC) | payer MEDICARE, OTHER, SELFPAY ==
[2023-04-23 08:39] VITALS: BMI 31.8
--- NOTE | 2023-04-24 | XR_ITS ---
WS: [id number] Left ankle, C-arm fluoroscopy views, 04/24/2023 Clinical Data: deep hardware removal Comparison: Left ankle, 10/01/2022 Findings: The distal lateral plate of the left fibula has been removed. The orthopedic screws have been removed . There are surgical rafal overlying the removal site. XR/XR ankle LT 1V [id number] Impression: Removal of orthopedic hardware from distal left fibula.
[2023-04-24 06:04] VITALS: BP 150/73; PULSE 58; RESP 18; TEMP 36.5; O2SAT 96
[2023-04-24] MEDS: sodium chloride 0.9% 1,000 ML 30 ML IV (06:18)
--- NOTE | 2023-04-24 06:34 | PM.OPSURHP ---
Providers/Chief Complaint Primary Care Provider: Calderon Wilde MD Chief Complaint: T84.84XA History of Present Illness Stephanie Weller is a 73 year old female ?presenting to clinic for evaluation of painful orthopedic hardware to left ankle.? Patient reports pain on both the lateral and medial sides of left ankle.? She states that she wants to discuss surgery to remove hardware. Patient denies any subjective nausea, vomiting, fever, chills, shortness of breath or chest pain. Review of Systems General: Reports: 10 or more systems reviewed and unremarkable except in HPI and below Const: Denies: fever(s) or chills Eyes: Denies: change in vision Card: Denies: chest pain or palpitations Resp: Denies: dyspnea or productive cough GI: Denies: abdominal pain, nausea or vomiting : Denies: flank pain Musc: Reports: extremity pain, joint pain, joint stiffness, limited range of motion and deformity Skin/Breast: Reports: skin tenderness; Denies: rash Neuro: Reports: difficulty walking; Denies: numbness in extremities, sensory changes or frequent falls Psych: Denies: suicidal ideation Kenneth/Lymph: Denies: easy bruising Medications/Allergies Home Medications Medication Instructions Recorded Confirmed Last Taken Type aspirin 81 mg tablet,delayed 81 mg PO DAILY 02/13/20 04/23/23 04/19/23 History release (Aspir-) miscellaneous medical supply 1 each miscellaneous DAILY #1 ea 04/09/20 03/18/23 Unknown Rx Lace up ankle brace #1 ea 05/23/20 03/18/23 Unknown Rx nitroglycerin 0.4 mg sublingual 0.4 mg sublingual Q5M PRN Chest 06/12/22 04/23/23 Unknown Rx tablet (Nitrostat) Pain #50 tabs losartan 25 mg tablet 25 mg PO DAILY 06/13/22 04/23/23 2 Weeks Ago History ~04/09/23 clopidogrel 75 mg tablet 75 mg PO DAILY #90 tabs 07/23/22 04/23/23 04/19/23 Rx rosuvastatin 5 mg tablet (Crestor) 5 mg PO DAILY #90 tabs 07/23/22 04/23/23 1 Day Ago Rx ~04/22/23 Allergies Allergy/AdvReac Type Severity Reaction Status Date / Time Iodine and Iodide Containing Allergy Severe Rash, Verified 03/18/23 10:12 Produc Burning and Itching latex Allergy Intermediate Rash Verified 03/18/23 10:12 sulfamethoxazole Allergy Intermediate Rash Verified 03/18/23 10:12 [From Bactrim] trimethoprim [From Bactrim] Allergy Intermediate Rash Verified 03/18/23 10:12 atorvastatin [From Lipitor] Allergy Unknown unknown Verified 03/18/23 10:12 codeine Allergy Unknown unknown Verified 03/18/23 10:12 ezetimibe [From Zetia] Allergy Unknown unknown Verified 03/18/23 10:12 Influenza Virus Vaccines Allergy Unknown unknown Verified 03/18/23 10:12 metoprolol [From Lopressor] Allergy Unknown unknown Verified 03/18/23 10:12 metronidazole [From Metrogel] Allergy Unknown unknown Verified 03/18/23 10:12 Opioids - Morphine Analogues Allergy Unknown unknown Verified 03/18/23 10:12 Sulfa (Sulfonamide Allergy ALGY-Hives Verified 03/18/23 10:12 Antibiotics) PFSH PFSH: Medical History (Updated 03/18/23 @ 11:14 by Calderon Wilde MD) Atherosclerotic heart disease of [place] coronary artery without angina pectoris Cataracts, both eyes 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 Olivas S/P coronary artery stent placement (~2009) 3 stents S/P rotator cuff repair Family History Mother Cancer Hyperlipidemia Father Cancer Denies family history of Diabetes CAD (coronary artery disease) Clotting disorder Dementia Chronic kidney disease (CKD) Suicide Anesthesia complication Bleeding disorder Lung disease Hypertension Stroke Social History Smoking and tobacco status: never smoked Alcohol intake: never Desire information about alcohol rehabilitation?: No Counseling given: No Substance/Drug Use: never Desire information about substance/drug rehabilitation?: No Counseling given: No Adopted: No Caregiver/support person: No Lives independently: Yes Household members: spouse and children Marital status: service: No Current occupational status: employed History of recent travel: No Do you think of yourself as: Straight/Heterosexual Current gender identity: Female Special margaret needs: No Agree to transfusion: Yes Dietary Habits: Caffeine: Yes Vital Signs Vitals Signs: Last Vital Signs Temp 97.7 F 04/24/23 06:04 Pulse 58 L 04/24/23 06:04 Resp 18 04/24/23 06:04 BP 150/73 04/24/23 06:04 Pulse Ox 96 04/24/23 06:04 O2 Del Method Room Air 04/24/23 06:06 Weight: Weight last 48 hrs Weight 180 lb Physical Exam Narrative: EXAM NARRATIVE: Patient is alert and oriented ?3 and in no acute distress.? The following is a focused bilateral lower extremity exam. VASCULAR: Dorsalis pedis and posterior tibial arteries palpable +2.? Capillary refill time less than 3 seconds to the distal hallux bilaterally. Calf is supple and nontender proximally and distally.? No pedal edema appreciated.? Pedal hair growth present. NEUROLOGICAL: Epicritic and protopathic sensations grossly intact to the lower extremities.? +2 Achilles tendon reflex noted bilaterally.? Negative Tinel sign upon percussion of lower extremity nerves. DERMATOLOGICAL: Lower extremity skin is well-hydrated, normal texture and turgor.? There are no open sores or lesions noted to the lower extremities.? No erythema or ecchymosis present to the bilateral legs and feet. MUSCULOSKELETAL: Tenderness at left medial and lateral malleolus at the level of hardware. Pain to palpation at medial hardware at suture button. No palpable mass along the course of the plantar fascia appreciated.? No pain to palpation along the course of the bilateral Achilles tendon.? No pain to palpation along the course posterior tibial tendon or peroneal tendons.? No pain with [id number] compression of calcaneus, bilaterally.? Muscle strength is 5/5 in all 3 cardinal planes pain-free without guarding to the foot and ankle, bilaterally. CARDIOVASCULAR: S1, S2, normal rate, normal rhythm.? Dorsalis pedis and posterior tibial arteries palpable. LUNGS: Clear to auscltation, no use of acessory muscles, no crackles or wheezes. A&P Assessment and plan (1) Painful orthopaedic hardware: Plan X-rays left ankle 3 views taken and reviewed shows intact hardware, there is a Arthrex speed bridge and a lateral fibular plate with screws.? Discussed hardware is a potential source of pain especially the tight rope medially at the button.? She also has numbness that is not likely to be associated with hardware. She is requesting hardware removal with realistic expectation that this may not alleviate all of her pain but may decrease her pain to some degree.? I reviewed at length with the patient, the risks, potential complications, benefits, alternatives, expectations, and typical outcomes associated with the surgery. The risks and potential complications were explained in detail, including but not limited to infection, wound dehiscence or soft tissue complications, bleeding and hematoma, chronic edema, neuritis or nerve damage producing numbness or chronic pain, CRPS, failure to relieve pain or worsening pain, thick / painful / unsightly scar, limited motion / stiffness, malposition, delayed union, malunion, or nonunion, fracture, reaction to implants, anesthetic complications, venous thromboembolism, and deformity recurrence.? I discussed the notion of no regrets with the patient as it pertains to complications and outcomes. The patient seemed to understand the nature of the proposed care and required convalescence. They asked appropriate questions, answered to their satisfaction. They are aware no guarantees can be made as to a satisfactory outcome and they understand there may be other possible unforeseen complications or outcomes not listed here that will be treated accordingly if they arise. There were no written or implied guarantees given to the patient. They gave informed consent to proceed. Coding Level of Care Code Acute Code for g Fwd Diagnoses Painful orthopaedic hardware T84.84XA
--- NOTE | 2023-04-24 06:36 | W.PM.OPSUD ---
Surgery/Procedure H&P Update DATE OF PROCEDURE: April 24, 2023 DATE H&P PERFORMED: 04/24/23 CHANGES TO PREVIOUS DOCUMENTATION: None PREOP DIAGNOSIS: Painful hardware left ankle PLANNED PROCEDURE: Operation Date: 04/24/23 07:00 Proposed Procedures p Deep hardware removal left ankle 30181,T84.84XA(Left) - Juan Miguel Jon DPM
[2023-04-24 06:39] LABS: Basophils # 0.1 10^3/uL (0.0-0.1); Basophils % 0.7 %; Eosinophils # 0.2 10^3/uL (0.0-0.8); Eosinophils % 2.6 %; Hematocrit 40.5 % (37.0-47.0); Hemoglobin 13.1 g/dL (11.5-15.3); Lymphocytes # 2.9 10^3/uL (0.8-4.8); Lymphocytes % 42.4 %; Mean Corpuscular HGB Conc 32.3 g/dL (30.0-36.0); Mean Corpuscular Hemoglobin 28.6 pg (28.0-34.0); Mean Corpuscular Volume 88.4 fl (81-99); Mean Platelet Volume 9.7 fL (7.4-10.4); Monocytes # 0.5 10^3/uL (0.2-0.9); Monocytes % 7.3 %; Neutrophils # 3.23 10^3/uL (1.8-7.7); Neutrophils % 46.6 %; Nucleated Red Blood Cells % 0 %; Platelet Count 278 10^3/cmm (130-400); Red Blood Count 4.58 10^6/uL (4.1-5.3); Red Cell Distribution Width 12.3 % (12.1-15.1); White Blood Count 6.9 10^3/uL (4.0-10.0)
--- NOTE | 2023-04-24 06:59 | ANES.PREANE2 ---
Pre-Anesthetic Assessment Height/Weight: Height 1.6 m Weight 81.647 kg Temp Pulse Resp BP Pulse Ox O2 Del Method 97.7 F 58 L 18 150/73 96 Room Air 04/24/23 06:04 04/24/23 06:04 04/24/23 06:04 04/24/23 06:04 04/24/23 06:04 04/24/23 06:06 Preop Diagnosis: Painful hardware left ankle Operation Date: 04/24/23 07:00 Proposed Procedures p Deep hardware removal left ankle 43275,T84.84XA(Left) - ISSAC TurciosM Was Beta Sea taken within 24 hours: N/A Was Clonidine taken within 24 hours: N/A Last intake: Intake Last Liquid Date 04/23/23 Last Liquid Time 23:59 Last Solid Date 04/23/23 Last Solid Time 20:00 Social No alcohol and No tobacco Exam alert, oriented x 3, clear to auscultation bilaterally and regular rate & rhythm Airway Submandibular: within normal limits Cervical ROM: within normal limits Mallampati: Class II Dentition: full History/ROS No significant history except as noted and No significant complaints Pulmonary None reported CV/HEM Arrythmia, Coronary Artery Disease and Hypertension Stents X 3 None reported Hepatic None reported GI None reported Metabolic None reported Musc/skel None reported Neuropsych None reported Anesthetic Plan ASA status: 3 Anesthesia: MAC Risk of > 500 ml blood loss (7ml/kg in children): No Medications/Allergies Home Medications Medication Instructions Recorded Confirmed Last Taken Type aspirin 81 mg tablet,delayed 81 mg PO DAILY 02/13/20 04/23/23 04/19/23 History release (Aspir-) miscellaneous medical supply 1 each miscellaneous DAILY #1 ea 04/09/20 03/18/23 Unknown Rx Lace up ankle brace #1 ea 05/23/20 03/18/23 Unknown Rx nitroglycerin 0.4 mg sublingual 0.4 mg sublingual Q5M PRN Chest 06/12/22 04/23/23 Unknown Rx tablet (Nitrostat) Pain #50 tabs losartan 25 mg tablet 25 mg PO DAILY 06/13/22 04/23/23 2 Weeks Ago History ~04/09/23 clopidogrel 75 mg tablet 75 mg PO DAILY #90 tabs 07/23/22 04/23/23 04/19/23 Rx rosuvastatin 5 mg tablet (Crestor) 5 mg PO DAILY #90 tabs 07/23/22 04/23/23 1 Day Ago Rx ~04/22/23 Allergies Allergy/AdvReac Type Severity Reaction Status Date / Time Iodine and Iodide Containing Allergy Severe Rash, Verified 03/18/23 10:12 Produc Burning and Itching latex Allergy Intermediate Rash Verified 03/18/23 10:12 sulfamethoxazole Allergy Intermediate Rash Verified 03/18/23 10:12 [From Bactrim] trimethoprim [From Bactrim] Allergy Intermediate Rash Verified 03/18/23 10:12 atorvastatin [From Lipitor] Allergy Unknown unknown Verified 03/18/23 10:12 codeine Allergy Unknown unknown Verified 03/18/23 10:12 ezetimibe [From Zetia] Allergy Unknown unknown Verified 03/18/23 10:12 Influenza Virus Vaccines Allergy Unknown unknown Verified 03/18/23 10:12 metoprolol [From Lopressor] Allergy Unknown unknown Verified 03/18/23 10:12 metronidazole [From Metrogel] Allergy Unknown unknown Verified 03/18/23 10:12 Opioids - Morphine Analogues Allergy Unknown unknown Verified 03/18/23 10:12 Sulfa (Sulfonamide Allergy ALGY-Hives Verified 03/18/23 10:12 Antibiotics) Current Medications Generic Name Dose Route Start Last Admin Trade Name Freq PRN Reason Stop Dose Admin Sodium Chloride 1,000 mls @ 30 mls/hr 04/24/23 05:45 04/24/23 06:18 Sodium Chloride 0.9% IV 04/25/23 05:44 30 mls/hr .Q24H SULEMAN Administration PFSH Anesthesia Medical History (Updated 03/18/23 @ 11:14 by Calderon Wilde MD) Atherosclerotic heart disease of [place] coronary artery without angina pectoris Cataracts, both eyes 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 Olivas S/P coronary artery stent placement (~2009) 3 stents S/P rotator cuff repair Family History Mother Cancer Hyperlipidemia Father Cancer Denies family history of Diabetes CAD (coronary artery disease) Clotting disorder Dementia Chronic kidney disease (CKD) Suicide Anesthesia complication Bleeding disorder Lung disease Hypertension Stroke Social History Smoking and tobacco status: never smoked Alcohol intake: never Desire information about alcohol rehabilitation?: No Counseling given: No Substance/Drug Use: never Desire information about substance/drug rehabilitation?: No Counseling given: No Adopted: No Caregiver/support person: No Lives independently: Yes Household members: spouse and children Marital status: service: No Current occupational status: employed History of recent travel: No Do you think of yourself as: Straight/Heterosexual Current gender identity: Female Special margaret needs: No Agree to transfusion: Yes Data Anesthesia 04/24/23 06:19 Short CBC 04/24/23 Range/Units 06:19 WBC 6.9 (4.0-10.0) 10^3/uL Hgb 13.1 (11.5-15.3) g/dL Hct 40.5 (37.0-47.0) % MCV 88.4 (81-99) fl Plt Count 278 (130-400) 10^3/cmm Neut % (Auto) 46.6 % Neut # (Auto) 3.23 (1.8-7.7) 10^3/uL Cardiac Studies: No Data to Display
[2023-04-24] MEDS: ceFAZolin 2,000 MG in sodium chloride 0.9% (plus) 50 ML 100 MG IV (07:02)
--- NOTE | 2023-04-24 08:04 | P.OP_ITS ---
Operative Report Date of procedure: April 24, 2023 Pre-op diagnosis: Preop Diagnosis Painful hardware left ankle Post-op diagnosis: Painful retained hardware left ankle Procedure done: Deep hardware removal left ankle. CPT code 44396 Implants: 3-0 Vicryl, 4-0 Vicryl, 4 nylon Specimens removed/disposition: Plate and screws removed Surgeon: Juan Miguel Jon D.P.M. Criminal Legal Assistant: Nida Estimated blood loss: Less than 5 33 IV fluids: None Urine output: None Brief History: X-rays left ankle 3 views taken and reviewed shows intact hardware, there is a Arthrex speed bridge and a lateral fibular plate with screws.? Discussed hardware is a potential source of pain especially the tight rope medially at the button.? She also has numbness that is not likely to be associated with hardware. She is requesting hardware removal with realistic expectation that this may not alleviate all of her pain but may decrease her pain to some degree.? I reviewed at length with the patient, the risks, potential complications, benefits, alternatives, expectations, and typical outcomes associated with the surgery. The risks and potential complications were explained in detail, including but not limited to infection, wound dehiscence or soft tissue complications, bleeding and hematoma, chronic edema, neuritis or nerve damage producing numbness or chronic pain, CRPS, failure to relieve pain or worsening pain, thick / painful / unsightly scar, limited motion / stiffness, malposition, delayed union, malunion, or nonunion, fracture, reaction to implants, anesthetic complications, venous thromboembolism, and deformity recurrence.? I discussed the notion of no regrets with the patient as it pertains to complications and outcomes. The patient seemed to understand the nature of the proposed care and required convalescence. They asked appropriate questions, answered to their satisfaction. They are aware no guarantees can be made as to a satisfactory outcome and they understand there may be other possible unforeseen complications or outcomes not listed here that will be treated accordingly if they arise. There were no written or implied guarantees given to the patient. They gave informed consent to proceed. Procedure: Under mild sedation the patient was brought to the operating room and remained on the gurney in supine position. A timeout was performed. Anesthesia was then administered by the anesthesia service. Local anesthesia was injected by myself consisting of 30 cc of 2-1 mixture 20 cc of Marcaine and 10 cc of Exparel subcutaneously at the planned incision site. Well-padded pneumatic tourniquet w as applied to the left high calf. The left lower extremity was scrubbed, prepped and draped utilizing normal aseptic technique. Left foot and ankle were exanguinated with an Esmarch bandage and the tourniquet was inflated to 250 mmHg. Attention was directed to the left lateral ankle where directly over the previous incision a linear longitudinal incision was made through skin with a #15 blade with dissection carried bluntly and sharply down through subcutaneous tissue to the layer of hardware, care was taken to retract and preserve neurovascular and tendinous structures. All bleeders were ligated and cauterized as necessary. The lateral hardware consisting of 5 screws, a suture button and a third tubular plate were visualized and removed in total and passed from the operative field, all rough edges were smoothed with a rasp and the incision laterally was irrigated with copious amounts of sterile skin solution. A medial incision was performed corresponding to the area of the medial suture button from the Arthrex speed bridge. Dissection was carried down through subcutaneous tissue to the layer of periosteum utilizing blunt and sharp technique. Care was taken to retract and preserve neurovascular and tendinous structures. All bleeders were ligated and cauterized as necessary. Suture button was found to be nonvisible and under the level of the cortex. Utilizing intraoperative fluoroscopy under live fluoroscopy and rotating the patient's limb was able to determine that the medial suture button never left the drill tunnel and was not visible at the medial tibia. Given the amount of osseous dissection required to retrieve the medial button I felt more harm would be done to the patient by trying to extract the medial button. The incision medial was flushed with copious amounts of sterile saline solution. Both medial and lateral incisions were closed in a layered fashion with deep layers closed with absorbable suture and skin closed with rafal and nylon. Incision was dressed with Adaptic, sterile 4 x 4's, Kerlix and Oral wrap. Cam boot was applied. Tourniquet was deflated and a prompt hyperemic response was noted to the distal digits of the left foot. Patient tolerated the procedure and anesthesia well and was transferred to the PACU with vital signs stable and vascular status intact. Following a period of postoperative monitoring she will be discharged home without home care instructions, follow-up and my cell phone number to contact with any postoperative questions or concerns.
[2023-04-24 08:08] VITALS: BP 117/58; PULSE 55; RESP 18; TEMP 36.1; O2SAT 93
[2023-04-24 08:10] VITALS: BP 125/49; PULSE 56; RESP 17; O2SAT 95
[2023-04-24 08:15] VITALS: BP 152/73; PULSE 56; RESP 18; O2SAT 96
[2023-04-24 08:21] VITALS: BP 148/72; PULSE 57; RESP 16; TEMP 36.6; O2SAT 96
[2023-04-24 08:46] VITALS: BP 117/71; PULSE 56; RESP 16; O2SAT 99
[2023-04-24] MEDS: acetaminophen 500 mg Tablet 1000 MG PO (08:47)
--- NOTE | 2023-04-24 14:26 | ANE.PACU2 ---
Inpatient post-anesthesia follow up: Airway intact: Yes Vital signs: Temperature 97.8 F Pulse Rate 56 Respiratory Rate 16 Blood Pressure 117/71 Pulse Oximetry 99 Oxygen Delivery Me thod Room Air Oxygen Flow Rate Fraction of Inspir ed Oxygen Hydration adequate: Yes Nausea and vomiting: No Pain level: 2 Mental status: Baseline
== END 2023-04-24 09:11 | disposition home or self-care (01) ==
PROVIDERS: Anesthesiology; PCP Family Medicine Adult Medicine; Visit Provider Podiatrist Foot & Ankle Surgery
PROC: (CPT 20680; principal; 2023-04-24 07:00)
DX: Y79.2 Prosthetic and other implants, materials and accessory orthopedic devices associated with adverse incidents (principal); T84.84XA Pain due to internal orthopedic prosthetic devices, implants and grafts, initial encounter; Z79.82 Long term (current) use of aspirin; Z79.02 Long term (current) use of antithrombotics/antiplatelets; I10 Essential (primary) hypertension; E78.5 Hyperlipidemia, unspecified; G47.30 Sleep apnea, unspecified; I25.10 Atherosclerotic heart disease of native coronary artery without angina pectoris
CPT/HCPCS: 20680; 73600; 76000; 85025; C9290; J0690; J2250; J2704; J3010; J3490; J7030

== ENCOUNTER 2023-04-28 23:50 | Emergency (ER) | payer MEDICARE, OTHER, SELFPAY ==
[2023-04-28 23:56] VITALS: BP 141/72; PULSE 69; RESP 14; TEMP 36.6; O2SAT 97; BMI 31.8
--- NOTE | 2023-04-29 01:33 | ED_ITS ---
HPI - Allergic Reaction General: Chief complaint: Allergic Reaction Stated complaint: allergic rxn to IV antibiotics, hives Time Seen by Provider: 04/29/23 01:33 History of Present Illness: HPI narrative: 73-year-old female comes in today with itching to the left lower leg with developing rash. Patient was concerned that she might have been dosed with some antibiotics during her surgery to have her hardware removed by Dr. Jon. Patient appears nontoxic. Patient appears slightly anxious and scratching at her dry skin. Patient does have some mild redness. She has multiple allergies. 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 Olivas S/P coronary artery stent placement (~2009) 3 stents S/P rotator cuff repair Family History Mother Cancer Hyperlipidemia Father Cancer Denies family history of Diabetes CAD (coronary artery disease) Clotting disorder Dementia Chronic kidney disease (CKD) Suicide Anesthesia complication Bleeding disorder Lung disease Hypertension Stroke Social History Smoking and tobacco status: never smoked Alcohol intake: never Desire information about alcohol rehabilitation?: No Counseling given: No Substance/Drug Use: never Desire information about substance/drug rehabilitation?: No Counseling given: No Adopted: No Caregiver/support person: No Lives independently: Yes Household members: spouse and children Marital status: service: No Current occupational status: employed Do you think of yourself as: Straight/Heterosexual Current gender identity: Female Special margaret needs: No Agree to transfusion: Yes Physical Exam Const: COMMON NORMALS: alert HENMT: COMMON NORMALS: normocephalic HEAD & SCALP: normocephalic Neck/C-Spine: COMMON NORMALS: full ROM Resp: COMMON NORMALS: normal respiratory effort and clear to auscultation bilaterally AUSCULTATION: clear to auscultation bilaterally Cardio: COMMON NORMALS: regular rate and regular rhythm RATE: regular rate RHYTHM: regular rhythm Back/Pelvis: COMMON NORMALS: thoracic and lumbar spine normal to inspection Extremity: LEFT LOWER EXTREMITY: Yes lower leg (Mild erythema and dry skin) Neuro: SENSORIUM/ORIENTATION: Yes alert Skin: RASHES: rashes noted (Dry flaky red rash) Course Vital Signs: Vital signs: Vital Signs Temperature 97.9 F 04/28/23 23:56 Pulse Rate 59 L 04/29/23 02:11 Respiratory Rate 16 04/29/23 02:11 Blood Pressure 167/73 04/29/23 02:11 Pulse Oximetry 93 04/29/23 02:11 Oxygen Delivery Me thod Room Air 04/28/23 23:56 MDM - Allergic Reaction Medical Decision Making Patient comes in for itchy rash to the skin in the area of her walking boot. Differential diagnosis includes allergic reaction, contact dermatitis, atopic dermatitis, anxiety. I believe patient probably has a secondary mild contact versus atopic dermatitis. Recommend the use of steroid cream and antihistamine to help control itching and rash. Patient reported understanding and agreed to plan. Discharge Plan Discharge Patient Disposition: Home Clinical Impression: AD (atopic dermatitis) Qualifiers: Atopic dermatitis type: atopic neurodermatitis Qualified Code(s): L20.81 - Atopic neurodermatitis Condition: Stable Prescriptions: New hydrocortisone 1 % cream 1 applic topical BID Qty: 28.35 0RF hydroxyzine HCl 25 mg tablet 25 mg PO Q4H PRN (Reason: itching) Qty: 30 0RF No Action (DME) Lace up ankle brace See Rx Instructions .ROUTE .MEDSUPPLY Qty: 1 0RF Rx Instructions: As directed losartan 25 mg tablet 25 mg PO DAILY clopidogrel 75 mg tablet 75 mg PO DAILY Qty: 90 3RF Rx Instructions: You must keep your appointment prior to any more refills rosuvastatin [Crestor] 5 mg tablet 5 mg PO DAILY Qty: 90 3RF miscellaneous medical supply Misc 1 each miscellaneous DAILY Qty: 1 0RF nitroglycerin [Nitrostat] 0.4 mg tablet, sublingual 0.4 mg SUBLINGUAL Q5M PRN (Reason: Chest Pain) Qty: 50 3RF aspirin [Aspir-81] 81 mg Tablet,Delayed Release (Dr/Ec) 81 mg PO DAILY diphenhydramine HCl 50 mg tablet 50 mg PO Q6H PRN (Reason: allergic reaction) 7 Days Qty: 21 0RF Discharge Orders: Discharge ED (Routine); Ordered 04/29/23 Ordered By: Lucas Muhammad Referrals: Calderon Wilde MD [Primary Care Provider] - Discharge Diet: Usual diet Discharge Activity: Increase activity as tolerated Patient Instructions: Dermatitis (ED) Activity Restrictions/Additional Instructions: Use a good emollient lotion. Use hydrocortisone 2-3 times a day to help with itching and irritation. Take hydroxyzine 25 mg every 4 hours as needed for itching. Do not use hydroxyzine with diphenhydramine. Follow-up with primary care for recheck. Return to ED for new concerns. Coding Level of Care Code ED Test Car Driver for Niecy Morgan
[2023-04-29 01:46] VITALS: BP 160/71; PULSE 70; RESP 20; O2SAT 96
[2023-04-29] MEDS: dexamethasone 10 mg/mL INJ IM (01:55)
[2023-04-29] MEDS: diphenhydrAMINE 50 mg/mL SDV 1mL IM (01:55)
[2023-04-29] MEDS: hydrocortisone 1% cream 28 gm 1 APPLIC TOPICAL (02:09)
[2023-04-29 02:11] VITALS: BP 167/73; PULSE 59; RESP 16; O2SAT 93
== END 2023-04-29 02:16 | disposition home or self-care (01) ==
PROVIDERS: Emergency Provider Nurse Practitioner Family; PCP Family Medicine Adult Medicine
DX: L20.81 Atopic neurodermatitis (principal)
CPT/HCPCS: 96372; 99284; J1100; J1200

== ENCOUNTER → 2023-04-30 12:48 | Outpatient (BNVA) | payer MEDICARE, OTHER, SELFPAY | PROVIDERS: PCP Family Medicine Adult Medicine; Visit Provider Podiatrist Foot & Ankle Surgery | DX: Z98.890 Other specified postprocedural states (principal) | CPT/HCPCS: 99024 ==

== ENCOUNTER → 2023-05-07 12:58 | Outpatient (BNVA) | payer MEDICARE, OTHER, SELFPAY | PROVIDERS: PCP Family Medicine Adult Medicine; Visit Provider Podiatrist Foot & Ankle Surgery | DX: Z98.890 Other specified postprocedural states (principal) | CPT/HCPCS: 99024 ==

== ENCOUNTER → 2023-06-04 13:29 | Outpatient (BNVA) | payer MEDICARE, OTHER, SELFPAY | PROVIDERS: PCP Family Medicine Adult Medicine; Visit Provider Podiatrist Foot & Ankle Surgery | DX: Z98.890 Other specified postprocedural states (principal) | CPT/HCPCS: 99024 ==

== ENCOUNTER → 2023-09-10 12:52 | Outpatient (BNVA) | payer MEDICARE, OTHER, SELFPAY | PROVIDERS: PCP Family Medicine Adult Medicine; Visit Provider Podiatrist Foot & Ankle Surgery | DX: Z98.890 Other specified postprocedural states (principal) | CPT/HCPCS: 99213 ==

== ENCOUNTER 2023-11-05 10:48 | Outpatient (CLI) | payer MEDICARE, OTHER, SELFPAY ==
--- NOTE | 2023-11-05 10:49 | MM_ITS ---
WS: [id number] Bilateral screening 3D tomosynthesis digital mammogram, 11/05/2023 Clinical Data: Z12.39 - Encounter for other screening for malignant neop... Comparison: 09/19/2010, 09/03/2007, 01/25/2004, 08/02/1999 Findings: The breast parenchymal pattern shows fibroglandular tissue. No spiculated masses or clustered calcifi cations are seen. There are no secondary signs of carcinoma. There are mole markers on both breasts. Impression: 1. Negative bilateral mammogram unchanged. 2. Recommend annual screening mammograms. MM/[place] [id number] BIRADS: 1-Negative FOLLOW UP: 1 Year Follow-up The CAD loom checker was used.
== END 2023-11-05 10:49 | disposition home or self-care (01) ==
LOC: RAD 10:48
PROVIDERS: PCP Family Medicine Adult Medicine; Visit Provider Family Medicine Adult Medicine
DX: Z12.31 Encounter for screening mammogram for malignant neoplasm of breast (principal)
CPT/HCPCS: 77063; 77067

== ENCOUNTER → 2023-11-18 10:55 | Outpatient (BNVA) | payer MEDICARE, OTHER, SELFPAY | PROVIDERS: PCP Family Medicine Adult Medicine; Visit Provider Internal Medicine Cardiovascular Disease | DX: I25.10 Atherosclerotic heart disease of native coronary artery without angina pectoris (principal); I10 Essential (primary) hypertension; E78.5 Hyperlipidemia, unspecified; I65.23 Occlusion and stenosis of bilateral carotid arteries; I49.8 Other specified cardiac arrhythmias; Z79.82 Long term (current) use of aspirin | CPT/HCPCS: 99214 ==

== ENCOUNTER → 2024-03-16 15:01 | Outpatient (BNVA) | payer MEDICARE, OTHER, SELFPAY | PROVIDERS: PCP Family Medicine Adult Medicine; Visit Provider Family Medicine Adult Medicine | DX: R39.9 Unspecified symptoms and signs involving the genitourinary system (principal) | CPT/HCPCS: 81000 ==

== ENCOUNTER → 2024-05-16 09:34 | Outpatient (BNVA) | payer MEDICARE, OTHER, SELFPAY | PROVIDERS: PCP Family Medicine Adult Medicine; Visit Provider Podiatrist Foot & Ankle Surgery | DX: M25.872 Other specified joint disorders, left ankle and foot; M20.42 Other hammer toe(s) (acquired), left foot | CPT/HCPCS: 73600; 73630; 99213 ==

== ENCOUNTER → 2024-05-17 14:21 | Outpatient (BNVA) | payer MEDICARE, OTHER, SELFPAY | PROVIDERS: PCP Family Medicine Adult Medicine; Visit Provider Internal Medicine Cardiovascular Disease | DX: R06.02 Shortness of breath (principal) | CPT/HCPCS: 36415; 80048; 83880; 93005; 99215 ==

== ENCOUNTER 2024-06-03 09:02 | Outpatient (CLI) | payer MEDICARE, OTHER, SELFPAY ==
--- NOTE | 2024-06-03 09:15 | USCV_ITS ---
Stephanie Weller Age: 74 Gender: F : 1950 Exam Date: 06/03/2024 09:16 Ordering Phys: Beverley Galeana MD ([email or web address]) Technologist: SULEMAN [place] [facility] [facility] [place]ication: SHORTNESS OF BREATH BP: 128 / 68 HR: 55 Rhythm: Sinus Technical Quality: Adequate MEASUREMENTS (Male / Female) Normal Values 2D ECHO LV Diastolic Diameter PLAX 4.5 cm 4.2 - 5.9 / 3.9 - 5.3 cm IVS Diastolic Thickness 1.1 cm 0.6 - 1.0 / 0.6 - 0.9 cm IVS Systolic Thickness 1.6 cm LVPW Diastolic Thickness 1.6 cm 0.6 - 1.0 / 0.6 - 0.9 cm LVPW Systolic Thickness 1.9 cm LVOT Diameter 2.0 cm LV Ejection Fraction 2D Teich 64.6 % LV Ejection Fraction MOD 2C 69.2 % LV Ejection Fraction 2C AL 70.4 % LA Diameter 3.4 cm RA Systolic Volume 4C AL 27.6 ml RA Systolic Volume 4C MOD 27.6 ml LA Sys Volume AL 31.3 cm cubed LA Sys Volume Index AL 16.2 cm cubed/m squared Aorta at Sinotubular Diameter 2.5 cm IVC Diameter 1.5 cm M-MODE LA Ao Ratio MM 1.0 AV Cusp Separation MM 1.3 cm DOPPLER AV Peak Velocity 220.7 cm/s LVOT Peak Velocity 108.0 cm/s AV Area Cont Eq vti 2.6 cm squared AV Area Cont Eq pk 1.6 cm squared MV Peak Velocity 84.0 cm/s MV Area PHT 2.7 cm squared Mitral E to A Ratio 0.8 TR Peak Velocity 236.0 cm/s TR Peak Gradient 22.3 mmHg TR Mean Velocity 183.0 cm/s TR Mean Gradient 14.7 mmHg TR Velocity Time Integral 78.0 cm TV Peak E Velocity 54.0 cm/s Right Atrial Pressure 3.0 mmHg Pulmonary Artery Systolic Pressu 25.3 mmHg PV Peak Velocity 89.0 cm/s RV Ejection Time 0.3 s FINDINGS Left Ventricle Normal left ventricular size and systolic function, EF 70%. Mild left ventricular hypertrophy. No regional wall motion abnormalities. Grade I/IV diastolic dysfunction (abnormal relaxation filling pattern), normal to mildly elevated filling pressures. Right Ventricle The right ventricle is normal in size and function. Right Atrium The right atrium is normal in size. Left Atrium Mildly increased left atrial size. Mitral Valve No gross abnormalities noted Aortic Valve [id number] aortic valve regurgitation. Thickened aortic valve. Tricuspid Valve Mild tricuspid valve regurgitation. Estimated pulmonary artery peak systolic pressure 25 mmHg.mild tricuspid valve regurgitation. Pulmonic Valve Pulmonic valve not well visualized. Pericardium Normal pericardium without effusion. Aorta Normal ascending aorta dimension. IVC The inferior vena cava appears normal. CONCLUSIONS Normal left ventricular size and systolic function, EF 70%. Mild left ventricular hypertrophy. No regional wall motion abnormalities. Grade I/IV diastolic dysfunction (abnormal relaxation filling pattern), normal to mildly elevated filling pressures. [id number] aortic valve regurgitation. Thickened aortic valve. Mild tricuspid valve regurgitation. Estimated pulmonary artery peak systolic pressure 25 mmHg.mild tricuspid valve regurgitation. There is no pericardial effusion. There are no intracardiac masses. No similar previous studies are available for comparison Dr Beverley Galeana MD [facility] (Electronically Signed) Final Date: 08 June 2024 00:22 S
== END 2024-06-03 09:03 | disposition home or self-care (01) ==
PROVIDERS: PCP Family Medicine Adult Medicine; Visit Provider Internal Medicine Cardiovascular Disease
DX: R06.09 Other forms of dyspnea (principal); I51.7 Cardiomegaly; I35.1 Nonrheumatic aortic (valve) insufficiency; I35.8 Other nonrheumatic aortic valve disorders; I07.1 Rheumatic tricuspid insufficiency
CPT/HCPCS: 93306

== ENCOUNTER 2024-08-04 07:05 | Outpatient (CLI) | payer MEDICARE, OTHER, SELFPAY ==
[2024-08-04 07:20] VITALS: BMI 30.9
--- NOTE | 2024-08-04 07:21 | ECG_ITS ---
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 Interpretive Statements NAME OF STUDY: LEXISCAN SESTAMIBI STRESS TEST INDICATION: SOB, ASHD, PROCEDURE: At the baseline, the EKG revealed normal sinus rhythm with poor R wave progression. Possible old septal IA. Nonspecific IVCD. Nonspecific ST changes in the high lateral leads. The baseline heart was 55 bpm with a blood pressue of 167/76 mm of Hg Lexiscan was infused over a period of 20 seconds. A total of 0.4 milligrams of Lexiscan was infused. The stress phase was continued for a total of 5 minutes. Heart rate at the end of the stress phase was 160/72 bpm with a blood pressure 151/73 mm of Hg. The EKG at the peak infusion revealed no significant changes. Sestamibi was injected 20 seconds after the Lexiscan infusion. Heart rate at the end of the recovery phase was 70 bpm with a blood pressure of 160/72 mm of Hg. CONCLUSION: 1. No significant EKG changes with the LexiScan infusion 2. No LexiScan induced chest pain or cardiac arrhythmia 3. Normal blood pressure and heart rate response 4. Sestamibi/sestamibi perfusion scan pending; see separate report. Electronically Signed On 08-04-2024 22:34:44 CDT by Beverley Galeana M.D. [email or web address]
--- NOTE | 2024-08-04 07:22 | NMCV_ITS ---
NM michael perf SPECT r/s* [id number] Stephanie Weller Age: 74 Gender: F : 1950 Exam Date: 08/04/2024 08:04 Ordering Phys: Beverley Galeana MD ([email or web address]) Technologist: FARSHAD Ernst Exam Location: [facility] Indications: SOB ASHD STRESS TEST [facility] IMAGE PROTOCOL Rest/Stress 1 Lexiscan Day Radiopharmaceutical Dose (mCi) Administration Site Administered by Rest: Tc-99m 10.4 IV FARSHAD Ernst Sestamibi Stress:Tc-99m 32.0 IV FARSHAD Ernst Sestamibi Rest: 04-Aug-2024 60 Discovery 630 Stress: 04-Aug-2024 30 Discovery 630 0.4mg Lexiscan. Images obtained in supine and prone position. SPECT RESULTS Technical Quality: Good Raw Data Analysis: Breast attenuation, Diaphragmatic attenuation Image Corrections: No attenuation or motion correction applied Summed Stress Score: 0 Summed Rest Score: 0 Summed Difference Score: 0 PERFUSION FINDINGS Fairly uniform myocardial tracer uptake. No significant perfusion abnormalities FUNCTIONAL RESULTS (calculated via Gated SPECT) Stress Image LV EF (%): 83 Stress EDV (mL):71 TID: 1.13 Stress ESV (mL):12 FUNCTIONAL FINDINGS: Segmental wall motion analysis revealing no gross wall motion abnormalities IMPRESSIONS 1. Myocardial perfusion imaging revealing uniform myocardial tracer uptake with no significant perfusion abnormalities 2. Normal LV ejection fraction of 83%. 3. LV wall motion analysis revealing no gross wall motion abnormalities. 4. Normal LV volume Low probability for coronary ischemia, based on the above findings Dr Beverley Galeana MD [facility] (Electronically Signed) Final Date: 04 August 2024 13:13 S
[2024-08-04] MEDS: regadenoson 0.4 Mg/5 ml Syringe IVP (08:41)
[2024-08-04 09:08] VITALS: BP 160/72; PULSE 69
== END 2024-08-04 07:06 | disposition home or self-care (01) ==
LOC: CDL 07:05
PROVIDERS: PCP Family Medicine Adult Medicine; Visit Provider Internal Medicine Cardiovascular Disease
DX: I25.10 Atherosclerotic heart disease of native coronary artery without angina pectoris (principal); R06.02 Shortness of breath
CPT/HCPCS: 36415; 78452; 93017; 96374; A9500; J2785

== ENCOUNTER 2024-08-09 11:40 | Outpatient (CLI) | payer MEDICARE, OTHER, SELFPAY ==
[2024-08-09 12:39] LABS: Basophils % 0.6 %; Eosinophils # 0.1 10^3/uL (0.0-0.8); Eosinophils % 1.3 %; Hematocrit 38.9 % (36-47); Lymphocytes # 2.5 10^3/uL (0.8-4.8); Lymphocytes % 39.5 %; Mean Corpuscular HGB Conc 33.2 g/dL (30-55); Mean Corpuscular Hemoglobin 29.9 pg (27-33); Mean Platelet Volume 9.7 fL (7.4-10.4); Monocytes # 0.4 10^3/uL (0.2-0.9); Monocytes % 6.8 %; Neutrophils # 3.28 10^3/uL (1.8-7.7); Neutrophils % 51.5 %; Nucleated Red Blood Cells % 0 %; Platelet Count 274 10^3/cmm (157-399); Red Blood Count 4.32 10^6/uL (3.85-5.65); Red Cell Distribution Width 12.3 % (12.1-15.1); White Blood Count 6.36 10^3/uL (3.29-11.43)
[2024-08-09 13:09] LABS: Alanine Aminotransferase 16 U/L (0-33); Albumin Level 4.3 g/dL (3.5-5.2); Alkaline Phosphatase 71 U/L (35-105); Anion Gap 14.3 (5-19); Aspartate Amino Transferase 20 U/L (0-32); Blood Urea Nitrogen 12 mg/dL (8-23); Calcium 8.8 mg/dL (8.5-10.5); Carbon Dioxide 27 mmol/L (22-29); Chloride 101 mmol/L (98-107); Chol HDL Ratio 2.78 mg/dL (0.0-4.40); Cholesterol 153 mg/dL (0-200); Globulin 2.9 g/dL (1.3-4.6); Glucose 100 mg/dL (65-115); HDL Cholesterol 55 mg/dL (60-100); LDL Cholesterol Calculated 76 mg/dL (50-129); LDL HDL Ratio 1.38 RATIO (0.00-3.22); NT Pro B Type Natriuretic Pept 54 pg/mL (0-125); Osmolality Calculated 286 mOsm/kg (285-295); Potassium 4.3 mmol/L (3.5-5.1); Sodium 138 mmol/L (136-145); Thyroid Stimulating Hormone 2.24 uIU/mL (0.27-4.20); Total Bilirubin 0.5 mg/dL (0.15-1.2); Total Protein 7.2 g/dL (6.6-8.7); Triglycerides 109 mg/dL (0-150)
== END 2024-08-09 11:41 | disposition home or self-care (01) ==
LOC: LAB 11:41
PROVIDERS: Absent Provider Family Medicine; PCP Family Medicine Adult Medicine; Visit Provider Internal Medicine Cardiovascular Disease
DX: E78.5 Hyperlipidemia, unspecified (principal); R06.02 Shortness of breath; I49.9 Cardiac arrhythmia, unspecified; I10 Essential (primary) hypertension; I25.10 Atherosclerotic heart disease of native coronary artery without angina pectoris; R05.3 Chronic cough
CPT/HCPCS: 36415; 80053; 80061; 83880; 84443; 85025

== ENCOUNTER → 2024-08-11 08:40 | Outpatient (BNVA) | payer MEDICARE, OTHER, SELFPAY | PROVIDERS: PCP Family Medicine Adult Medicine; Visit Provider Obstetrics & Gynecology | DX: N81.10 Cystocele, unspecified (principal); Z90.710 Acquired absence of both cervix and uterus; Z90.722 Acquired absence of ovaries, bilateral | CPT/HCPCS: 76857 ==

== ENCOUNTER 2024-09-10 19:46 | Emergency (ER) | payer MEDICARE, OTHER, SELFPAY ==
[2024-09-10 20:09] VITALS: BP 170/73; PULSE 69; RESP 18; TEMP 36.6; O2SAT 98; BMI 31.5
[2024-09-11 01:14] VITALS: BP 154/66; PULSE 51; RESP 17; O2SAT 98
[2024-09-11] MEDS: tetracaine 0.5% Op Soln 4 mL Btl 1 DROP EYE-LEFT (02:52)
[2024-09-11 03:30] VITALS: BP 182/77; PULSE 58; RESP 15; O2SAT 95
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
[2024-09-11 05:00] VITALS: BP 155/71; PULSE 57; RESP 17; O2SAT 97
[2024-09-11] MEDS: ketorolac 10 mg Tablet PO (05:03)
--- NOTE | 2024-09-11 05:07 | PC.NURSE ---
Unable to get eyedrops from pharmacy in a timely manner. notified. had script sent to pharmacy
== END 2024-09-11 05:17 | disposition home or self-care (01) ==
PROVIDERS: Emergency Provider Emergency Medicine; PCP Family Medicine Adult Medicine
DX: H11.32 Conjunctival hemorrhage, left eye (principal); Z79.02 Long term (current) use of antithrombotics/antiplatelets; Z79.82 Long term (current) use of aspirin; E78.5 Hyperlipidemia, unspecified; I10 Essential (primary) hypertension
CPT/HCPCS: 99283

== ENCOUNTER → 2024-12-06 10:31 | Outpatient (BNVA) | payer MEDICARE, OTHER, SELFPAY | PROVIDERS: PCP Family Medicine; Visit Provider Internal Medicine Cardiovascular Disease | DX: I10 Essential (primary) hypertension (principal); I25.10 Atherosclerotic heart disease of native coronary artery without angina pectoris; E78.5 Hyperlipidemia, unspecified; I65.23 Occlusion and stenosis of bilateral carotid arteries; I49.8 Other specified cardiac arrhythmias | CPT/HCPCS: 99214 ==

== ENCOUNTER 2025-04-05 11:34 | Outpatient (CLI) | payer MEDICARE, OTHER, SELFPAY ==
--- NOTE | 2025-04-05 11:40 | MM_ITS ---
WS: [id number] BILATERAL 3D TOMOSYNTHESIS DIGITAL SCREENING MAMMOGRAPHY WITH CAD CLINICAL INFORMATION: screening HISTORY: Screening mammogram. No current complaints. COMPARISON: 2022 TECHNIQUE: Bilateral CC and MLO views. FINDINGS: Scattered fibroglandular densities bilaterally. No suspicious focal mass, asymmetry, calcifications, or architectural distortion. No evidence of malignancy. Vascular calcifications. MM/MM scr BI tomosynthesis [id number] IMPRESSION: DENSITY: There are scattered areas of fibroglandular density. BI-RADS: 2 - Benign. FOLLOW UP: 1 Year Follow-up Recommend return to annual screening mammography.
== END 2025-04-05 11:35 | disposition home or self-care (01) ==
PROVIDERS: PCP Family Medicine; Visit Provider Family Medicine
DX: Z12.31 Encounter for screening mammogram for malignant neoplasm of breast (principal); R92.323 Mammographic fibroglandular density, bilateral breasts; R92.1 Mammographic calcification found on diagnostic imaging of breast
CPT/HCPCS: 77063; 77067

== ENCOUNTER → 2025-04-17 09:35 | Outpatient (BNVA) | payer MEDICARE, OTHER, SELFPAY | PROVIDERS: PCP Family Medicine; Referring Provider Family Medicine; Visit Provider Student in an Organized Health Care Education/Training Program | DX: Z12.11 Encounter for screening for malignant neoplasm of colon (principal) | CPT/HCPCS: 99024; 99204 ==

== ENCOUNTER 2025-05-02 12:33 | Outpatient (CLI) | payer MEDICARE, OTHER, SELFPAY ==
--- NOTE | 2025-05-02 12:37 | XR_ITS ---
WS: [id number] XR elbow RT min 3V* [id number] REASON FOR EXAM: right ulnar neuropathy FINDINGS: No joint effusion. No fracture. Mild narrowing of the humeral ulnar joint with mild subchondral sclerosis and osteophytosis of the olecranon and coronoid process. XR/XR elbow RT min 3V* [id number] IMPRESSION: Mild osteoarthritis with no acute abnormality identified.
== END 2025-05-02 12:34 | disposition home or self-care (01) ==
LOC: RAD 12:35
PROVIDERS: PCP Family Medicine; Visit Provider Family Medicine
DX: G56.21 Lesion of ulnar nerve, right upper limb (principal); M19.021 Primary osteoarthritis, right elbow; M25.721 Osteophyte, right elbow
CPT/HCPCS: 73080

== ENCOUNTER 2025-06-13 07:04 | Day surgery (SDC) | payer MEDICARE, OTHER, SELFPAY ==
[2025-06-13 07:09] VITALS: BP 162/77; PULSE 63; RESP 16; TEMP 36.1; O2SAT 98; BMI 32.7
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
[2025-06-13 08:16] VITALS: BP 142/95; PULSE 70; RESP 18; TEMP 36.6; O2SAT 92
[2025-06-13 08:33] VITALS: BP 147/75; PULSE 74; RESP 18; TEMP 36.3; O2SAT 96
--- NOTE | 2025-06-13 09:26 | ANE.PACU2 ---
Inpatient post-anesthesia follow up: Airway intact: Yes Vital signs: Temperature 97.3 F Pulse Rate 74 Respiratory Rate 18 Blood Pressure 147/75 Pulse Oximetry 96 Oxygen Delivery Me thod Room Air Oxygen Flow Rate Fraction of Inspir ed Oxygen Hydration adequate: Yes Nausea and vomiting: No Pain level: 1 Mental status: Baseline
== END 2025-06-13 09:27 | disposition home or self-care (01) ==
PROVIDERS: PCP Family Medicine; Visit Provider Student in an Organized Health Care Education/Training Program
PROC: 0DJD8ZZ Inspection of Lower Intestinal Tract, Via Natural or Artificial Opening Endoscopic (ICD-10-PCS; CPT 45378; principal; 2025-06-13 08:00)
DX: Z12.11 Encounter for screening for malignant neoplasm of colon (principal); K57.30 Diverticulosis of large intestine without perforation or abscess without bleeding; Z79.82 Long term (current) use of aspirin; E78.5 Hyperlipidemia, unspecified; G47.30 Sleep apnea, unspecified; I10 Essential (primary) hypertension; Z95.5 Presence of coronary angioplasty implant and graft
CPT/HCPCS: G0121; J2704; J7030; J9999

== ENCOUNTER 2025-06-15 11:37 | Emergency (ER) | payer MEDICARE, OTHER, SELFPAY ==
--- OUTSIDE RECORDS SUMMARY | 2025-06-15 11:53 | XMS_ITS | Encounter Summary ---
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 Gender Identity Not on file Sexual Orientation Not on file documented as of this encounter Plan of Treatment Not on file documented as of this encounter Procedures Procedure Name Priority Date/Time Associated Diagnosis Comments CARDIAC ENZYMES Routine 06/03/2007 12:16 PM CDT PT AND APTT Routine 06/03/2007 9:20 AM CDT CBC WITHOUT DIFFERENTIAL Routine 06/03/2007 9:20 AM CDT BASIC METABOLIC PANEL Routine 06/03/2007 9:20 AM CDT CARDIAC ENZYMES Routine 06/03/2007 6:20 AM CDT CARDIAC ENZYMES Routine 06/03/2007 12:30 AM CDT documented in this encounter Results * CARDIAC ENZYMES (06/03/2007 12:16 PM CDT) [facility] TROPONIN I <0.1 0.0 - 1.3 ng/mL INTERFACE SYSTEM Comment: As of 07 the Troponin Reference Range has changed from 0.0-1.5 ng/ml to 0.0- 1.3 ng/ml due to a change in testing methodology. CKMB 0.8 0.0 - 5.0 ng/mL INTERFACE SYSTEM 06/03/2007 12:1 6 PM CDT Result [facility] Joe Sinclair MD CHEMISTRY ORDERABLES Edited INTERFACE SYSTEM Refer to clinic/hospital department * PT AND APTT (06/03/2007 9:20 AM CDT) [facility] PROTIME 15.3 13.0 - 15.7 Secs INTERFACE SYSTEM Comment: As of 06 note change in normal range. INR 1.1 INTERFACE SYSTEM Comment: Expected Values for INR: DVT/PE Goal INR 2.5; range 2.0 - 3.0 Valve Replacement Tissue Goal INR 2.5; range 2.0 - 3.0 Mechanical Goal INR 3.0; range 2.5 - 3.5 POST-MO Goal INR 2.5; range 2.0 - 3.0 or Goal 3.0; range 2.5 - 3.5 Atrial Fibrillation Goal INR 2.5; range 2.0 - 3.0 Ischemic Stroke Goal INR 2.5; range 2.0 - 3.0 For additional information see Guidelines for Anticoagulation available from the pharmacy Rogelio Price PTT 30.9 21.6 - 35.6 Secs INTERFACE SYSTEM Comment: Therapeutic Range: Hi-level PE/DVT heparin protocol 80.1 -95.0 sec Lo-level PE/DVT heparin protocol 67.1 - 80.0 sec Cardiac Heparin Protocol 67.1 - 85.0 sec Neuro Heparin Protocol 67.1 - 80.0 sec As of 11/05/2006 note change in APTT Normal Range. 06/03/2007 9:20 AM CDT Result [facility] us Joe Sinclair MD HEMATOLOGY ORDERABLES Edite d INTERFACE SYSTEM Refer to clinic/hospital department * (ABNORMAL) CBC WITHOUT DIFFERENTIAL (06/03/2007 9:20 AM CDT) WBC 3.6(L) 4.8 - 10.8 K/ul INTERFACE SYSTEM RBC 3.99(L) 4.20 - 5.40 Mil/ul INTERFACE SYSTEM HEMOGLOBIN 11.6(L) 12.0 - 16.0 g/dL INTERFACE SYSTEM HEMATOCRIT 35.5(L) 36.0 - 46.0 % INTERFACE SYSTEM MCV 89.0 84.0 - 103.0 Fl INTERFACE SYSTEM MCH 29.1 27.0 - 34.0 pg INTERFACE SYSTEM MCHC 32.7 30.0 - 35.0 g/dL INTERFACE SYSTEM RDW 12.4 11.0 - 14.5 % INTERFACE SYSTEM PLATELETS 191 140 - 440 K/ul INTERFACE SYSTEM MPV 10.4 8.9 - 12.8 Fl INTERFACE SYSTEM NEUTROPHILS 53.0 42.2 - 75.2 % INTERFACE SYSTEM LYMPHOCYTES 36.1 24.0 - 44.0 % INTERFACE SYSTEM MONOCYTES 7.8 2.0 - 10.0 % INTERFACE SYSTEM EOSINOPHILS 2.8 0.0 - 7.0 % INTERFACE SYSTEM BASOPHILS 0.3 0.0 - 1.0 % INTERFACE SYSTEM NEUTROPHIL ABSOLUTE 1.9(L) 2.0 - 8.0 K/ul INTERFACE SYSTEM LYMPHOCYTE ABSOLUTE 1.3 1.2 - 4.0 K/ul INTERFACE SYSTEM MONOCYTE ABSOLUTE 0.3 0.1 - 0.6 K/ul INTERFACE SYSTEM EOSINOPHIL ABSOLUTE 0.1 0.0 - 0.7 K/ul INTERFACE SYSTEM BASOPHILS ABSOLUTE 0.0 0.0 - 0.2 K/ul INTERFACE SYSTEM 06/03/2007 9:20 AM CDT us Joe Sinclair MD HEMATOLOGY ORDERABLES Edite d INTERFACE SYSTEM Refer to clinic/hospital department * (ABNORMAL) BASIC METABOLIC PANEL (06/03/2007 9:20 AM CDT) GLUCOSE 143(H) 70 - 110 mg/dL INTERFACE SYSTEM BUN 12 7 - 17 mg/dL INTERFACE SYSTEM CREATININE 0.6(L) 0.7 - 1.2 mg/dL INTERFACE SYSTEM SODIUM 139 136 - 145 mEq/L INTERFACE SYSTEM POTASSIUM 3.4(L) 3.5 - 5.0 mEq/L INTERFACE SYSTEM CHLORIDE 106 95 - 110 mEq/L INTERFACE SYSTEM CO2 27 22 - 32 mmol/l INTERFACE SYSTEM CALCIUM 9.0 8.4 - 10.5 mg/dL INTERFACE SYSTEM ANION GAP 9 9 - 20 mEq/L INTERFACE SYSTEM OSMOLALITY, CALCULATED 287 275 - 295 mOsm/Kg INTERFACE SYSTEM 06/03/2007 9:20 AM CDT Joe Sinclair MD CHEMISTRY ORDERABLES Edited Performing Organization Address [facility] Phone Number INTERFACE SYSTEM Refer to clinic/hospital department * CARDIAC ENZYMES (06/03/2007 6:20 AM CDT) TROPONIN I <0.1 0.0 - 1.3 ng/mL INTERFACE SYSTEM Comment: As of 07 the Troponin Reference Range has changed from 0.0-1.5 ng/ml to 0.0- 1.3 ng/ml due to a change in testing methodology. CKMB 0.9 0.0 - 5.0 ng/mL INTERFACE SYSTEM 06/03/2007 6:20 AM CDT us Joe Sinclair MD CHEMISTRY ORDERABLES Edited Performing Organization Address [facility] de Phone Number INTERFACE SYSTEM Refer to clinic/hospital department * CARDIAC ENZYMES (06/03/2007 12:30 AM CDT) TROPONIN I <0.1 0.0 - 1.3 ng/mL INTERFACE SYSTEM Comment: As of 07 the Troponin Reference Range has changed from 0.0-1.5 ng/ml to 0.0- 1.3 ng/ml due to a change in testing methodology. CKMB 1.1 0.0 - 5.0 ng/mL INTERFACE SYSTEM 06/03/2007 12:3 0 AM CDT us Joe Sinclair MD CHEMISTRY ORDERABLES Edited INTERFACE SYSTEM Refer to clinic/hospital department documented in this encounter Visit Diagnoses Diagnosis Esophageal reflux- Primary documented in this encounter Care Teams Metal Expediter Relationship Specialty Start Date End Date Manuel Agarwal DO [address] [address] PCP - General Internal Medicine 07/31/16 documented as of this encounter
--- OUTSIDE RECORDS SUMMARY | 2025-06-15 11:53 | XMS_ITS | Encounter Summary ---
Author Organization [facility] Address [address] [place] [address] Care Team Providers Care Entry Level Account Manager Name Role Phone Manuel Agarwal DO Primary Care Provide r Encounter Details Date Type Department Care Team (Latest Contact Info) Description 06/21/2004 Outpatient Historical [facility] Medicine [place] [address] [facility] [address] [place] [phone] Kofi Muñoz DO NO ADDRESS ON FILE PATHOLOGIC FX UNSPECIFIED SITE (Primary Dx) Social History Tobacco Use Types Packs/Day Years Used Date Smoking Tobacco: Never Assessed Comments Unknown Sex and Gender Information Value Date Recorded Sex Assigned at Not on file 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
--- OUTSIDE RECORDS SUMMARY | 2025-06-15 11:53 | XMS_ITS | Encounter Summary ---
Author Organization [facility] Address [address] [place] [address] Care Team Providers Care Gun Tester Name Role Phone Manuel Agarwal DO Primary Care Provide r Encounter Details Date Type Department Care Team (Latest Contact Info) Description 01/25/2007 Outpatient Historical [facility] Cardiology- [place] [address] [place] [address] Anel Mcneill FNP [address] [place] [address] Cor Athrscl-Uns Vessel (Primary Dx); Other and Unspecified Hyperlipidemia Social History Tobacco Use Types Packs/Day Years Used Date Smoking Tobacco: Never Assessed Comments Unknown Sex and Gender Information Value Date Recorded Sex Assigned at Not on file 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
--- OUTSIDE RECORDS SUMMARY | 2025-06-15 11:53 | XMS_ITS | Encounter Summary ---
Author Organization [facility] Address [address] [place] [address] Care Team Providers Care Groundskeeping Maintenance Worker Name Role Phone AgarwalManuel harrell Primary Care Provide r Encounter Details Date Type Department Care Team (Late st Contact Info) Description 11/16/2006 Inpatient Historical HIS IN BED Joe Sinclair MD NO ADDRESS ON FILE Other Complications due to Other Cardiac Device, Implant, and Graft (Primary Dx) Social History Tobacco Use Types Packs/Day Years Used Date Smoking Tobacco: Never Assessed Comments Unknown Sex and Gender Information Value Date Recorded Sex Assigned at Not on file 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 Gender Identity Not on file Sexual Orientation Not on file documented as of this encounter Plan of Treatment Not on file documented as of this encounter Procedures Procedure Name Priority Date/Time Associated Diagnosis Comments POC ACTIVATED CLOTTING TIME Routine 11/16/2006 3:35 PM PRINT WASHER PT AND APTT Routine 11/16/2006 9:35 AM PRINT WASHER CBC WITHOUT DIFFERENTIAL Routine 11/16/2006 9:35 AM PRINT WASHER BASIC METABOLIC PANEL Routine 11/16/2006 9:35 AM PRINT WASHER documented in this encounter Results * POC ACTIVATED CLOTTING TIME (11/16/2006 3:35 PM PRINT WASHER) ACT POC 146 79 - 149 sec INTERFACE SYSTEM 11/16/2006 3:35 PM PRINT WASHER Joe Sinclair MD POINT OF CARE TESTING Final Result INTERFACE SYSTEM Refer to clinic/hospital department * (ABNORMAL) CBC WITHOUT DIFFERENTIAL (11/16/2006 9:35 AM PRINT WASHER) WBC 6.2 4.8 - 10.8 K/ul INTERFACE SYSTEM RBC 4.61 4.20 - 5.40 Mil/ul INTERFACE SYSTEM HEMOGLOBIN 13.4 12.0 - 16.0 g/dL INTERFACE SYSTEM HEMATOCRIT 40.6 36.0 - 46.0 % INTERFACE SYSTEM MCV 88.1 84.0 - 103.0 Fl INTERFACE SYSTEM MCH 29.1 27.0 - 34.0 pg INTERFACE SYSTEM MCHC 33.0 30.0 - 35.0 g/dL INTERFACE SYSTEM RDW 12.3 11.0 - 14.5 % INTERFACE SYSTEM PLATELETS 256 140 - 440 K/ul INTERFACE SYSTEM MPV 10.3 8.9 - 12.8 Fl INTERFACE SYSTEM NEUTROPHILS 78.6(H) 42.2 - 75.2 % INTERFACE SYSTEM LYMPHOCYTES 18.1(L) 24.0 - 44.0 % INTERFACE SYSTEM MONOCYTES 2.9 2.0 - 10.0 % INTERFACE SYSTEM EOSINOPHILS 0.2 0.0 - 7.0 % INTERFACE SYSTEM BASOPHILS 0.2 0.0 - 1.0 % INTERFACE SYSTEM NEUTROPHIL ABSOLUTE 4.9 2.0 - 8.0 K/uL INTERFACE SYSTEM LYMPHOCYTE ABSOLUTE 1.1(L) 1.2 - 4.0 K/ul INTERFACE SYSTEM MONOCYTE ABSOLUTE 0.2 0.1 - 0.6 K/ul INTERFACE SYSTEM EOSINOPHIL ABSOLUTE 0.0 0.0 - 0.7 K/ul INTERFACE SYSTEM BASOPHILS ABSOLUTE 0.0 0.0 - 0.2 K/ul INTERFACE SYSTEM 11/16/2006 9:35 AM PRINT WASHER Joe Sinclair MD HEMATOLOGY ORDERABLES Final Result INTERFACE SYSTEM Refer to clinic/hospital department * PT AND APTT (11/16/2006 9:35 AM PRINT WASHER) PROTIME 14.4 13.0 - 15.7 Secs INTERFACE SYSTEM Comment: As of 06 note change in normal range. INR 1.0 INTERFACE SYSTEM Comment: Expected Values for INR: DVT/PE Goal INR 2.5; range 2.0 - 3.0 Valve Replacement Tissue Goal INR 2.5; range 2.0 - 3.0 Mechanical Goal INR 3.0; range 2.5 - 3.5 POST-WV Goal INR 2.5; range 2.0 - 3.0 or Goal 3.0; range 2.5 - 3.5 Atrial Fibrillation Goal INR 2.5; range 2.0 - 3.0 Ischemic Stroke Goal INR 2.5; range 2.0 - 3.0 For additional information see Guidelines for Anticoagulation available from the pharmacy Rogelio Price PTT 26.7 21.6 - 35.6 Secs INTERFACE SYSTEM Comment: Therapeutic Range: Hi-level PE/DVT heparin protocol 80.1 -95.0 sec Lo-level PE/DVT heparin protocol 67.1 - 80.0 sec Cardiac Heparin Protocol 67.1 - 85.0 sec Neuro Heparin Protocol 67.1 - 80.0 sec As of 11/05/2006 note change in APTT Normal Range. 11/16/2006 9:35 AM PRINT WASHER Joe Sinclair MD HEMATOLOGY ORDERABLES Final Result INTERFACE SYSTEM Refer to clinic/hospital department * (ABNORMAL) BASIC METABOLIC PANEL (11/16/2006 9:35 AM PRINT WASHER) GLUCOSE 117(H) 70 - 110 mg/dL INTERFACE SYSTEM BUN 8 7 - 17 mg/dL INTERFACE SYSTEM CREATININE 0.7 0.7 - 1.2 mg/dL INTERFACE SYSTEM SODIUM 140 136 - 145 mEq/L INTERFACE SYSTEM POTASSIUM 3.9 3.5 - 5.0 mEq/L INTERFACE SYSTEM CHLORIDE 105 95 - 110 mEq/L INTERFACE SYSTEM CO2 29 22 - 32 mmol/l INTERFACE SYSTEM CALCIUM 10.1 8.4 - 10.5 mg/dL INTERFACE SYSTEM ANION GAP 10 9 - 20 mEq/L INTERFACE SYSTEM OSMOLALITY, CALCULATED 287 275 - 295 mOsm/Kg INTERFACE SYSTEM 11/16/2006 9:35 AM PRINT WASHER us Joe Sinclair MD CHEMISTRY ORDERABLES Final Result INTERFACE SYSTEM Refer to clinic/hospital department documented in this encounter Visit Diagnoses Diagnosis Other complications due to other cardiac device, implant, and graft- Primary documented in this encounter Care Teams Groundskeeping Maintenance Worker Relationship Specialty Start Date End Date Manuel Agarwal DO [address] [phone] PCP - General Internal Medicine 07/31/16 documented as of this encounter
--- OUTSIDE RECORDS SUMMARY | 2025-06-15 11:53 | XMS_ITS | Clinical Summary ---
Author Organization [facility] Address [address] [facility] Attn: [place] [address] Care Team Providers Care Solutions Architect Name Role Phone Yaima Conteh MD Primary Care Provider [phone] Allergies Active Allergy Reactions Criticality Noted Date Comments Atorvastatin Muscle Pain Low 09/28/2009 Codeine Bradycardia Medium 01/15/2010 Ezetimibe Hives High 09/28/2009 Iodinated Contrast Media Rash Low 09/28/2009 Latex Anaphylaxis High 10/04/2014 Medications acetaminophen (TYLENOL) 500 mg tabletIndications: Disorder of right rotator cuff,Scapulocostal syndrome, right,Cervical spondylosis without myelopathy,Lateral epicondylitis (tennis elbow), right Take 500 mg by mouth every 6 hours as needed for Pain. 5 Active rosuvastatin (CRESTOR) 5 mg tablet Take 5 mg by mouth daily. Active clopidogreL (PLAVIX) 75 mg Tablet Take 75 mg by mouth. Active aspirin (ECOTRIN EC) 81 mg Tablet, Delayed Release (E.C.) Take 81 mg by mouth daily. 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 Fibromyalgia 11/02/2014 Generalized osteoarthrosis, involving multiple s ites 11/02/2014 Dysphagia 07/12/2014 Dysphagia, pharyngeal phase 07/12/2014 Personal history of KS (myocardial infarction) 0 01/15/2010 ASHD (arteriosclerotic heart disease) 04/03/2009 Dyslipidemia 04/03/2009 Encounters Date Type Department Care Team Description 05/23/2025 External Device Data ST[facility] ABSTRACTION Provider, Abstract 05/09/2025 External Device Data [facility] ABSTRACTION Provider, Abstract 05/09/2025 External Device Data [facility] ABSTRACTION Provider, Abstract 05/09/2025 External Device Data [facility] ABSTRACTION Provider, Abstract 04/11/2025 External Device Data [facility] ABSTRACTION Provider, Abstract 04/11/2025 External Device Data ST[facility] ABSTRACTION Provider, Abstract 04/11/2025 External Device Data ST[facility] ABSTRACTION Provider, Abstract 04/07/2025 6:21 PM CDT - 04/07/2025 7:59 PM CDT Emergency [facility] Emergency Medicine [address] [place] [address] Jose Salgado MD Sindlinger, Timothy S, MD Contusion of right hand, initial encounter (Primary Dx) Discharge Disposition: Home or Self Care 04/07/2025 Travel from Last 3 Months Immunizations Immunization Administration Dates Next Due Influenza Seasonal Unspecified Formulation IM ,09/16/1999 Family History Medical History Relation Name Comments Breast Cancer Maternal Aunt 1 Breast Cancer Maternal Aunt 2 Cancer Mother PANCREATIC CANC ER, METASTATIC CA Cancer Sister MELANOMA Colon Cancer Neg Hx Ovarian Cancer Neg Hx Relation Name Status Comments Maternal Aunt 1 Alive Maternal Aunt 2 Alive Maternal Grandmother Mother Sister Alive Son 1 Alive Son 2 Alive Social History Tobacco Use Types Packs/Day Years Used Date Smoking Tobacco: Never Smokeless Tobacco: Never Alcohol Use Standard Drinks/Week Comments No 0 (1 standard drink = 0.6 oz pur e alcohol) Comments Unknown Sex and Gender Information Value Date Recorded Sex Assigned at Not on file Legal Sex Female 3:41 AM 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 Gender Identity Not on file Sexual Orientation Not on file Last Filed Vital Signs Vital Sign Reading Time Taken Comments Blood Pressure 108/73 04/07/2025 7:45 PM CDT Pulse 60 04/07/2025 7:45 PM CDT Temperature 36.4 C (97.5 F) 04/07/2025 6:25 PM CDT Respiratory Rate 15 04/07/2025 7:45 PM CDT Oxygen Saturation 100% 04/07/2025 7:45 PM CDT Inhaled Oxygen Concentration - - Weight 81.6 kg (180 lb) 04/07/2025 6:25 PM CDT Height 157.5 cm (5' 2 ) 04/07/2025 6:25 PM CDT Body Mass Index 32.92 04/07/2025 6:25 PM CDT Plan of Treatment Health Maintenance Due Date Last Done Comments DTAP/TDAP/TD VACCINES (1 - Tdap) 1970 COLORECTAL SCREENING 02/14/1996 Colorectal Cancer Screening 02/14/1996 FIT-DNA Q 3 years 02/14/1996 FIT/FOBT Q 1 year 02/14/1996 Flex Sig/CT Colonography Q 5 years 02/14/1996 PNEUMOCOCCAL VACCINE 50+ YEA RS (1 of 1 - PCV) 2001 ZOSTER VACCINE (1 of 2) 2001 RSV VACCINE (60+ or ) (1 - Risk 60-74 years 1-dose series) 2011 OSTEOPOROSIS SCREENING 02/14/2016 BREAST CANCER SCREENING 03/01/2020 03/01/20 19, 03/01/2019, 10/23/2015, Additional history exists COVID-19 Vaccine (2023-2 5 season) 2024 04/01/2021, 03/04/2021 INFLUENZA VACCINE (#1) 2025 12/14/2002, 1998 Procedures Procedure Name Priority Date/Time Associated Diagnosis Comments XR FOREARM 2 VW RIGHT Stat 04/07/2025 6:55 PM CDT XR HAND 3+ VW RIGHT Stat 04/07/2025 6 :55 PM CDT MAMMO SCREEN BILAT W OR WO CAD Routine 03/01/2019 1:43 PM CDT Encounter for screening mammogram for malignant neoplasm of breast from Last 3 Months or Most Recently Relevant to Health Maintenance Results * XR FOREARM 2 VW RIGHT (04/07/2025 6:55 PM CDT) Anatomical Region Laterality Modality Upper Extremity Computed Radiogr aphy 04/07/2025 6:56 PM CDT Impressions 04/07/2025 7:27 PM CDT IMPRESSION: Please see below. Exam: XR FOREARM 2 VW RIGHT Date/Time of Exam: 04/07/2025 6:55 PM Reason For Exam: Injury. Diagnosis: See Reason for Exam. Comparison: None. Findings: Two views of the forearm demonstrate no acute fracture or dislocation. Diffuse osteopenia. No significant joint space loss or productive change is identified. Impression: 1. Negative for acute osseous abnormality. Narrative Procedure Note Earl Lau MD - 04/07/2025 IMPRESSION: Please see below. Exam: XR FOREARM 2 VW RIGHT Date/Time of Exam: 04/07/2025 6:55 PM Reason For Exam: Injury. Diagnosis: See Reason for Exam. Comparison: None. Findings: Two views of the forearm demonstrate no acute fracture or dislocation. Diffuse osteopenia. No significant joint space loss or productive change is identified. Impression: 1. Negative for acute osseous abnormality. Jose Salgado MD DIAGNOSTIC IMAGING ORDERABLE S Final Result * XR HAND 3+ VW RIGHT (04/07/2025 6:55 PM CDT) Anatomical Region Laterality Modality Wrist / Hand Computed Radiogr aphy 04/07/2025 6:55 PM CDT Impressions 04/07/2025 7:26 PM CDT IMPRESSION: Please see below. Exam: XR HAND 3+ VW RIGHT Date/Time of Exam: 04/07/2025 6:55 PM Reason For Exam: Injury. Diagnosis: See Reason for Exam. Comparison: None. Findings: Three views of the hand demonstrate no acute fracture or dislocation. Diffuse osteopenia. No significant joint space loss or productive change is identified. Impression: 1. Negative for acute osseous abnormality. Narrative Procedure Note Earl Lau MD - 04/07/2025 IMPRESSION: Please see below. Exam: XR HAND 3+ VW RIGHT Date/Time of Exam: 04/07/2025 6:55 PM Reason For Exam: Injury. Diagnosis: See Reason for Exam. Comparison: None. Findings: Three views of the hand demonstrate no acute fracture or dislocation. Diffuse osteopenia. No significant joint space loss or productive change is identified. Impression: 1. Negative for acute osseous abnormality. Jose Salgado MD DIAGNOSTIC IMAGING ORDERABLE S Final Result * MAMMO SCREEN BILAT W OR WO CAD (03/01/2019 1:43 PM CDT) Anatomical Region Laterality Modality Breast Bilateral Other Narrative 03/03/2019 2:36 PM CDT Bilateral Mammogram Reason for Exam: Screening Comparison: Compared to: 10/23/2015 MAMMO DIGITAL SCREEN BILAT, 10/03/2014 MAMMO DIGITAL SCREEN BILAT, 09/29/2013 MAMMO DIGITAL SCREEN BILAT, 07/07/2012 MAMMO DIGITAL SCREEN BILAT, and 09/19/2010 MAMMO PRIOR STUDY Findings: Bilateral CC and MLO views were obtained. This examination was reviewed with the aid of a computer-aided detection system(CAD). Breast Composition: There are scattered areas of fibroglandular density. There are no suspicious masses, areas of architectural distortions, or microcalcifications to suggest malignancy. No significant new findings since the prior mammogram(s). Impression: Negative screening mammogram. Recommendation: Routine annual follow-up Overall Assessment: Birads Category 1: Negative Procedure Note Phoebe Forman, - 04/16/2021 Bilateral Mammogram Reason for Exam: Screening Comparison: Compared to: 10/23/2015 MAMMO DIGITAL SCREEN BILAT, 10/03/2014 MAMMO DIGITAL SCREEN BILAT, 09/29/2013 MAMMO DIGITAL SCREEN BILAT, 07/07/2012 MAMMO DIGITAL SCREEN BILAT, and 09/19/2010 MAMMO PRIOR STUDY Findings: Bilateral CC and MLO views were obtained. This examination was reviewed with the aid of a computer-aided detection system(CAD). Breast Composition: There are scattered areas of fibroglandular density. There are no suspicious masses, areas of architectural distortions, or microcalcifications to suggest malignancy. No significant new findings since the prior mammogram(s). Impression: Negative screening mammogram. Recommendation: Routine annual follow-up Overall Assessment: Birads Category 1: Negative Manuel Agarwal DO MAMMO ORDERABLES Sania l Result from Last 3 Months or Most Recently Relevant to Health Maintenance Insurance MEDICARE PART A AND B [employer] Care Teams Solutions Architect Relationship Specialty Start Date End Date Yaima Conteh MD [address] [place] [address] PCP - General Family Practice 04/07/25
--- OUTSIDE RECORDS SUMMARY | 2025-06-15 11:53 | XMS_ITS | Encounter Summary ---
Author Organization [facility] Address [address] [place] [address] Care Team Providers Care Field Operator Name Role Phone Manuel Agarwal DO Primary Care Provide r Encounter Details Date Type Department Care Team (Latest Contact Info) Description 06/18/2004 Outpatient Historical [facility] Medicine [place] [address] [facility] [address] [place] [phone] Kofi Muñoz DO NO ADDRESS ON FILE GENERAL OSTEOARTHROSIS (Primary Dx); MYALGIA AND MYOSITIS NOS Social History Tobacco Use Types Packs/Day Years Used Date Smoking Tobacco: Never Assessed Comments Unknown Sex and Gender Information Value Date Recorded Sex Assigned at Not on file 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
--- OUTSIDE RECORDS SUMMARY | 2025-06-15 11:53 | XMS_ITS | Encounter Summary ---
Author Organization [facility] Address [address] [place] [address] Care Team Providers Care Qa Specialist Name Role Phone Manuel Agarwal DO Primary Care Provide r Encounter Details Date Type Department Care Team (Latest Contact Info) Description 06/02/2007 Outpatient Historical [facility] [address] [place] [address] AMBULANCE, [facility] Nausea Alone; Other General Symptoms; Shortness of Breath; Old Myocardial Infarction; Unspecified Heart Disease; Pure Hypercholesterolemia; Acquired Absence of Organ, Genital Organs; Other Postprocedural Status; Encounter for Long-Term (Current) Use of Other Medications; Encounter for Long-Term (Current) Use of Aspirin; Personal History of Allergy to Narcotic Agent; Personal History of Allergy to Sulfonamides; Personal History of Allergy to Other Antibiotic Agent Social History Tobacco Use Types Packs/Day Years Used Date Smoking Tobacco: Never Assessed Comments Unknown Sex and Gender Information Value Date Recorded Sex Assigned at Not on file 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 Gender Identity Not on file Sexual Orientation Not on file documented as of this encounter Plan of Treatment Not on file documented as of this encounter Visit Diagnoses Diagnosis Nausea alone Other general symptoms(780.99) Other general symptoms Shortness of breath Old myocardial infarction Heart disease, unspecified Pure hypercholesterolemia Acquired absence of organ, genital organs Other postprocedural status(V45.89) Other postprocedural status Encounter for long-term (current) use of other medications Encounter for long-term (current) use of aspirin Personal history of allergy to narcotic agent Personal history of allergy to sulfonamides Personal history of allergy to other antibiotic agent documented in this encounter Care Teams Qa Specialist Relationship Specialty Start Date End Date Manuel Agarwal DO [address] [address] PCP - General Internal Medicine 07/31/16 documented as of this encounter
--- OUTSIDE RECORDS SUMMARY | 2025-06-15 11:54 | XMS_ITS | Encounter Summary ---
Author Organization [facility] Address [address] [place] [address] Care Team Providers Care Die Presser Name Role Phone Manuel Agarwal DO Primary Care Provide r Encounter Details Date Type Department Care Team (Latest Contact Info) Description 06/30/2003 Outpatient Historical [facility] Medicine [place] [address] [facility] 60 [place] [phone] Kofi Muñoz DO NO ADDRESS ON FILE JOINT PAIN-SHLDER (Primary Dx) Social History Tobacco Use Types Packs/Day Years Used Date Smoking Tobacco: Never Assessed Comments Unknown Sex and Gender Information Value Date Recorded Sex Assigned at Not on file 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
--- OUTSIDE RECORDS SUMMARY | 2025-06-15 11:54 | XMS_ITS | Encounter Summary ---
Author Organization [facility] Address [address] [place] [address] Care Team Providers Care President And Ceo Name Role Phone Manuel Agarwal DO Primary Care Provide r Encounter Details Date Type Department Care Team (Late st Contact Info) Description 02/22/[address] 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 us Manuel Agarwal DO DIAGNOSTIC IMAGING OR DERABLES Final Result documented in this encounter Visit Diagnoses Diagnosis Screening breast examination Other screening breast examination Screening breast examination Other screening breast examination documented in this encounter Care Teams President And Ceo Relationship Specialty Start Date End Date Manuel Agarwal DO [address] [address] PCP - General Internal Medicine 07/31/16 documented as of this encounter
--- OUTSIDE RECORDS SUMMARY | 2025-06-15 11:54 | XMS_ITS | Encounter Summary ---
Author Organization [facility] Address [address] [place] [address] Care Team Providers Care Administrative Manager Name Role Phone Manuel Agarwal DO Primary Care Provide r Encounter Details Date Type Department Care Team (Latest Contact Info) Description 05/26/2000 Outpatient Historical [facility] Medicine [place] 104 [facility] 60 [place] [phone] Satinder Garcia MD [address] [facility] [address] [place] [phone] Impetigo (Primary Dx) Social History Tobacco Use Types Packs/Day Years Used Date Smoking Tobacco: Never Assessed Comments Unknown Sex and Gender Information Value Date Recorded Sex Assigned at Not on file 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
--- OUTSIDE RECORDS SUMMARY | 2025-06-15 11:54 | XMS_ITS | Encounter Summary ---
Author Organization [facility] Address [address] [place] [address] Care Team Providers Care Scientific Photographer Name Role Phone Manuel Agarwal DO Primary Care Provide r Encounter Details Date Type Department Care Team (Latest Contact Info) Description 05/16/2004 Outpatient Historical [facility] Medicine [place] [address] 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
--- OUTSIDE RECORDS SUMMARY | 2025-06-15 11:54 | XMS_ITS | Encounter Summary ---
Author Organization [facility] Address [address] [place] [address] Care Team Providers Care Flexographic Press Set Up Operator Name Role Phone Manuel Agarwal Primary Care Provide r Encounter Details Date Type Department Care Team (Late st Contact Info) Description 02/14/[address] 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 Gender Identity Not on file Sexual Orientation Not on file documented as of this encounter Plan of Treatment Not on file documented as of this encounter Procedures Procedure Name Priority Date/Time Associated Diagnosis Comments PATHOLOGY Routine 02/11/2008 12:27 PM CDT documented in this encounter Results * PATHOLOGY (02/11/2008 12:27 PM CDT) PATHOLOGY/CYT OLOGY REPORT [facility] An[facility] Path[facility] Dept [address] [facility] [address] Patient: STEPHANIE WELLER Accn No: [id number] Collected: 02/11/2008 12:27:00 PM DERMATOPATHOLOGY FINAL REPORT Diagnosis SLIGHTLY SPONGIOTIC DERMATITIS WITH EOSINOPHILS (see comment) (692.9) (LEFT LOWER LEG) Herson Briscoe M.D. (Electronically signed by) Verified: 02/17/08 RP /DJT Pathologist Comment A GMS stain does not reveal fungi. Clinical Information Neurodermatitis vs. Schamberg's vs. allergic contact dermatitis. Specimen Source LEFT LOWER LEG Gross Description Received in formalin is a light acharya fragment of skin measuring 0.8 x 0.5 x 0.1 cm. The specimen is sectioned into five pieces and submitted in cassette A1. *Gross examination performed at [facility], [address] [place] [address] DI RP /DJT Microscopic Description Sections show slight spongiosis in a slightly thickened epidermis, which overlies a perivascular infiltrate of lymphocytes and eosinophils. INTERFACE SYSTEM 02/11/2008 12:2 7 PM CDT us Harper Mixon FLOOR WORKER WELL SERVICE PATHOLOGY/CYTOLOGY ORDERABLES Edited INTERFACE SYSTEM Refer to clinic/hospital department documented in this encounter Visit Diagnoses Not on filedocumented in this encounter Care Teams Flexographic Press Set Up Operator Relationship Specialty Start Date End Date Manuel Agarwal DO [address] [phone] PCP - General Internal Medicine 07/31/16 documented as of this encounter
--- OUTSIDE RECORDS SUMMARY | 2025-06-15 11:54 | XMS_ITS | Encounter Summary ---
Author Organization [facility] Address [address] [place] [address] Care Team Providers Care Patient Care Associate Name Role Phone Manuel Agarwal DO Primary Care Provide r Encounter Details Date Type Department Care Team (Late st Contact Info) Description 05/17/2004 Outpatient Historical [facility] Medicine [place] 104 [facility] 60 [place] [phone] Social History Tobacco Use Types Packs/Day Years Used Date Smoking Tobacco: Never Assessed Comments Unknown Sex and Gender Information Value Date Recorded Sex Assigned at Not on file 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
--- OUTSIDE RECORDS SUMMARY | 2025-06-15 11:54 | XMS_ITS | Encounter Summary ---
Author Organization [facility] Address [address] [place] [address] Care Team Providers Care Supplies Packer Name Role Phone Manuel Agarwal DO Primary Care Provide r Encounter Details Date Type Department Care Team (Latest Contact Info) Description 04/16/[address] 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
--- OUTSIDE RECORDS SUMMARY | 2025-06-15 11:54 | XMS_ITS | Encounter Summary ---
Author Organization [facility] Address [address] [place] [address] Care Team Providers Care Interactive Media Marketing Director Name Role Phone Manuel Agarwal DO Primary Care Provide r Encounter Details Date Type Department Care Team (Latest Contact Info) Description 01/22/2004 Outpatient Historical [facility] Medicine [place] [address] [facility] 60 [place] [phone] Kofi Muñoz DO NO ADDRESS ON FILE Gynecologic examination (Primary Dx); Atrophic vaginitis; SCREENING MAL NEOP-RECTUM Social History Tobacco Use Types Packs/Day Years Used Date Smoking Tobacco: Never Assessed Comments Unknown Sex and Gender Information Value Date Recorded Sex Assigned at Not on file 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 Gender Identity Not on file Sexual Orientation Not on file documented as of this encounter Plan of Treatment Not on file documented as of this encounter Visit Diagnoses Diagnosis Gynecologic examination- Primary Gynecological examination Atrophic vaginitis Postmenopausal atrophic vaginitis Screening for malignant neoplasm of the rectum documented in this encounter Care Teams Interactive Media Marketing Director Relationship Specialty Start Date End Date Manuel Agarwal DO [address] [facility] 1 [place] [phone] PCP - General Internal Medicine 07/31/16 documented as of this encounter
--- OUTSIDE RECORDS SUMMARY | 2025-06-15 11:54 | XMS_ITS | Encounter Summary ---
Author Organization [facility] Address [address] [place] [address] Care Team Providers Care Waste Water Plant Operator Name Role Phone Manuel Agarwal DO Primary Care Provide r Encounter Details Date Type Department Care Team (Latest Contact Info) Description 01/30/2000 Outpatient Historical [facility] Medicine [place] [address] [facility] 60 [place] [phone] Alisa King NO ADDRESS ON FILE Candidiasis of vulva and vagina (Primary Dx); Other specified noninflammatory disorder of vagina; Abnormal loss of weight; Screening for malignant neoplasm of the rectum Social History Tobacco Use Types Packs/Day Years Used Date Smoking Tobacco: Never Assessed Comments Unknown Sex and Gender Information Value Date Recorded Sex Assigned at Not on file 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 Gender Identity Not on file Sexual Orientation Not on file documented as of this encounter Plan of Treatment Not on file documented as of this encounter Visit Diagnoses Diagnosis Candidiasis of vulva and vagina- Primary Other specified noninflammatory disorder of vagina Abnormal loss of weight Abnormal loss of weight and underweight Screening for malignant neoplasm of the rectum documented in this encounter Care Teams Waste Water Plant Operator Relationship Specialty Start Date End Date Manuel Agarwal DO [address] [facility] 1 [place] [address] PCP - General Internal Medicine 07/31/16 documented as of this encounter
--- OUTSIDE RECORDS SUMMARY | 2025-06-15 11:54 | XMS_ITS | Encounter Summary ---
Author Organization [facility] Address [address] [place] [address] Care Team Providers Care Supervisor Pumping Station Name Role Phone Manuel Agarwal DO Primary Care Provide r Encounter Details Date Type Department Care Team (Late st Contact Info) Description 05/21/2004 Outpatient Historical [facility] Dermatology- 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
--- OUTSIDE RECORDS SUMMARY | 2025-06-15 11:54 | XMS_ITS | Encounter Summary ---
Author Organization [facility] Address [address] [place] [address] Care Team Providers Care Feather Baler Name Role Phone Manuel Agarwal DO Primary Care Provide r Encounter Details Date Type Department Care Team (Latest Contact Info) Description 10/07/1999 Outpatient Historical [facility] Medicine [place] [address] [facility] 60 [place] [phone] Kofi Muñoz DO NO ADDRESS ON FILE Other, multiple, and unspecified sites, insect bite, nonvenomous, infected(919.5) (Primary Dx); Dysuria Social History Tobacco Use Types Packs/Day Years Used Date Smoking Tobacco: Never Assessed Comments Unknown Sex and Gender Information Value Date Recorded Sex Assigned at Not on file 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 Gender Identity Not on file Sexual Orientation Not on file documented as of this encounter Plan of Treatment Not on file documented as of this encounter Visit Diagnoses Diagnosis Other, multiple, and unspecified sites, insect bite, nonvenomous, infected(919.5)- Primary Other, multiple, and unspecified sites, insect bite, nonvenomous, infected Dysuria documented in this encounter Care Teams Feather Baler Relationship Specialty Start Date End Date Manuel Agarwal DO [address] [facility] [place] [address] PCP - General Internal Medicine 07/31/16 documented as of this encounter
--- OUTSIDE RECORDS SUMMARY | 2025-06-15 11:54 | XMS_ITS | Encounter Summary ---
Author Organization [facility] Address [address] [place] [address] Care Team Providers Care Resource Forester Name Role Phone Manuel Agarwal DO Primary Care Provide r Encounter Details Date Type Department Care Team (Late st Contact Info) Description 01/22/2004 Outpatient Historical [facility] Medicine [place] [address] [facility] 60 [place] [address] Serina Kessler NP NO ADDRESS ON FILE Social History Tobacco Use Types Packs/Day Years Used Date Smoking Tobacco: Never Assessed Comments Unknown Sex and Gender Information Value Date Recorded Sex Assigned at Not on file Legal Sex Female 4:01 AM WOUND CARE SPECIALIST Gender Identity Not on file Sexual Orientation Not on file documented as of this encounter Plan of Treatment Not on file documented as of this encounter Visit Diagnoses Not on filedocumented in this encounter Care Teams Resource Forester Relationship Specialty Start Date End Date Manuel Agarwal DO [address] [facility] [place] [address] PCP - General Internal Medicine 07/31/16 documented as of this encounter
--- OUTSIDE RECORDS SUMMARY | 2025-06-15 11:54 | XMS_ITS | Encounter Summary ---
Author Organization [facility] Address [address] [place] [address] Care Team Providers Care Greens Laborer Name Role Phone AgarwalManueliel Primary Care Provide r Reason for Referral * Outpatient Services (Routine) - Closed Specialty Diagnoses / Procedures Referred By Contac t Referred To Contact Diagnoses Other screening mammogram Procedures MAMMO DIGITAL SCREEN BILAT Hunter Mac MD [address] [facility] 1 [place] [address] Phone: tel: fax: Referral ID Status Reason Start Date Expiration Date Visits Re quested Visits Authorized [id number] Closed 09/29/2013 10/30/2014 1 1 Encounter Details Date Type Department Care Team ([facility] st Contact Info) Description 09/29/2013 Ancillary Orders [facility] Centralized Scheduling [address] [place] [phone] Hunter Mac MD [address] [facility] 1 [place] [address] Other screening mammogram (Primary Dx) Social History Tobacco Use Types Packs/Day Years Used Date Smoking Tobacco: Never Smokeless Tobacco: Never Alcohol Use Standard Drinks/Week Comments Not Asked 0 (1 standard drink = 0.6 oz pur e alcohol) Comments No Sex and Gender Information Value Date Recorded Sex Assigned at Not on file Legal Sex Female 4:01 AM PAN WASHER Gender Identity Not on file Sexual Orientation Not on file Occupation Industry Job Start Date Job End Date Not on file Not on file Not on file Not on file Not on file Not on file Not on file Not on file documented as of this encounter Plan of Treatment Not on file documented as of this encounter Results * MAMMO DIGITAL SCREEN BILAT (09/29/2013 1:45 PM CDT) Anatomical Region Laterality Modality Breast Bilateral Mammography Narrative 10/03/2013 9:05 PM PAN WASHER Bilateral Mammogram Reason for Exam: Screening Comparison: Compared to: 07/07/2012 MAMMO DIGITAL SCREEN BILAT Findings: Bilateral CC and MLO views were obtained. This examination was reviewed with the aid of a computer-aided detection system(CAD). The breast tissue density is average. No significant new findings since the prior mammogram(s). Procedure Note Andrew Araya MD - 10/03/2013 Bilateral Mammogram Reason for Exam: Screening Comparison: Compared to: 07/07/2012 MAMMO DIGITAL SCREEN BILAT Findings: Bilateral CC and MLO views were obtained. This examination was reviewed with the aid of a computer-aided detectionsystem(CAD). The breast tissue density is average. No significant new findings since the prior mammogram(s). Hunter Mac MD MAMMO ORDERABLES Final Res ult documented in this encounter Visit Diagnoses Diagnosis Other screening mammogram- Primary Other screening mammogram documented in this encounter Care Teams Greens Laborer Relationship Specialty Start Date End Date Manuel Agarwal DO [address] [address] PCP - General Internal Medicine 07/31/16 documented as of this encounter
--- OUTSIDE RECORDS SUMMARY | 2025-06-15 11:54 | XMS_ITS | Encounter Summary ---
Author Organization [facility] Address [address] [place] [address] Care Team Providers Care Cafe Assistant Name Role Phone Manuel Agarwal DO Primary Care Provide r Encounter Details Date Type Department Care Team (Latest Contact Info) Description 07/14/2003 Outpatient Historical [facility] Medicine [place] [address] [facility] [address] [place] [phone] Kofi Muñoz DO NO ADDRESS ON FILE SHLDR/UPPER ARM INJURY NOS (Primary Dx) Social History Tobacco Use Types Packs/Day Years Used Date Smoking Tobacco: Never Assessed Comments Unknown Sex and Gender Information Value Date Recorded Sex Assigned at Not on file Legal Sex Female 4: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
--- OUTSIDE RECORDS SUMMARY | 2025-06-15 11:54 | XMS_ITS | Encounter Summary ---
Author Organization [facility] Address [address] [place] [address] Care Team Providers Care Retail Tire Sales Manager Name Role Phone Manuel Agarwal DO Primary Care Provide r Reason for Referral * Outpatient Services (Routine) - Closed Specialty Diagnoses / Procedures Referred By Contac t Referred To Contact Radiology Diagnoses Other screening mammogram Procedures MAMMO DIGITAL SCREEN BILAT Hunter Mac MD [address] [facility] 1 [place] [address] Phone: tel: fax: [facility] [address] [facility] [address] [place] [address] Phone: tel: fax: Referral ID Status Reason Start Date Expiration Date V isits Requested Visits Authorized [id number] Closed [facility] CTS to Schedule (SGF) 09/28/2014 10/29/2015 1 1 Encounter Details Date Type Department Care Team (Late st Contact Info) Description 09/28/2014 Ancillary Orders [facility] Centralized Scheduling [address] [facility] [address] [place] [address] Hunter Mac MD [address] [facility] 1 [place] [address] Other screening mammogram (Primary Dx) Social History Tobacco Use Types Packs/Day Years Used Date Smoking Tobacco: Never Smokeless Tobacco: Never Alcohol Use Standard Drinks/Week Comments No 0 (1 standard drink = 0.6 oz pur e alcohol) Comments No Sex and Gender Information Value Date Recorded Sex Assigned at Not on file Legal Sex Female 4:01 AM LOADING UNIT OPERATOR POWDER CHARGING Gender Identity Not on file Sexual Orientation [...] encounter Results * MAMMO DIGITAL SCREEN BILAT (10/03/2014 11:42 AM LOADING UNIT OPERATOR POWDER CHARGING) Anatomical Region Laterality Modality Breast Bilateral Mammography Narrative 10/06/2014 7:21 AM LOADING UNIT OPERATOR POWDER CHARGING Bilateral Mammogram Reason for Exam: Screening Comparison: Compared to: 09/29/2013 MAMMO DIGITAL SCREEN BILAT, 07/07/2012 MAMMO DIGITAL SCREEN BILAT Findings: Bilateral CC and MLO views were obtained. This examination was reviewed with the aid of a computer-aided detection system(CAD). The breast tissue density is average. No significant new findings since the prior mammogram(s). Procedure Note Rose Valentin MD - 10/06/2014 Bilateral Mammogram Reason for Exam: Screening Comparison: Compared to: 09/29/2013 MAMMO DIGITAL SCREEN BILAT, 07/07/2012MAMMO DIGITAL SCREEN BILAT Findings: Bilateral CC and MLO views were obtained. This examination was reviewed with the aid of a computer-aided detectionsystem(CAD). The breast tissue density is average. No significant new findings since the prior mammogram(s). us Hunter Mac MD MAMMO ORDERABLES Final Res ult documented in this encounter Visit Diagnoses Diagnosis Other screening mammogram- Primary Other screening mammogram documented in this encounter Care Teams Retail Tire Sales Manager Relationship Specialty Start Date End Date Manuel Agarwal [address] [phone] PCP - General Internal Medicine 07/31/16 documented as of this encounter
--- OUTSIDE RECORDS SUMMARY | 2025-06-15 11:54 | XMS_ITS | Encounter Summary ---
Author Organization [facility] Address [address] [place] [address] Care Team Providers Care Math And Sciences Department Chair Name Role Phone Manuel Agarwal DO Primary Care Provide r Encounter Details Date Type Department Care Team (Latest Contact Info) Description 12/17/2007 Outpatient Historical [facility] Cardiovascular Services [address] [place] [address] Pradip Spencer MD [address] [facility] 4 [place] [phone] Coronary Atherosclerosis of [place] Coronary Artery Social History Tobacco Use Types Packs/Day Years Used Date Smoking Tobacco: Never Assessed Comments Unknown Sex and Gender Information Value Date Recorded Sex Assigned at Not on file Legal Sex Female 4:01 AM MANAGER STRATEGIC PARTNERSHIPS Gender Identity Not on file Sexual Orientation Not on file documented as of this encounter Plan of Treatment Not on file documented as of this encounter Visit Diagnoses Diagnosis Coronary atherosclerosis of [place] coronary artery documented in this encounter Care Teams Math And Sciences Department Chair Relationship Specialty Start Date End Date Manuel Agarwal DO [address] [facility] [place] 1 [place] [address] PCP - General Internal Medicine 07/31/16 documented as of this encounter
--- OUTSIDE RECORDS SUMMARY | 2025-06-15 11:54 | XMS_ITS | Encounter Summary ---
Author Organization [facility] Address [address] [place] [address] Care Team Providers Care Meal Packer Name Role Phone Manuel Agarwal DO Primary Care Provide r Encounter Details Date Type Department Care Team (Latest Contact Info) Description 11/03/2003 Outpatient Historical [facility] Medicine [place] [address] [facility] 60 [place] [phone] Satinder Garcia MD [address] [facility] 200 [place] [phone] FLU W RESP MANIFEST NEC (Primary Dx) Social History Tobacco Use Types Packs/Day Years Used Date Smoking Tobacco: Never Assessed Comments Unknown Sex and Gender Information Value Date Recorded Sex Assigned at Not on file Legal Sex Female 4:01 AM BENCH CARPENTER Gender Identity Not on file Sexual Orientation Not on file documented as of this encounter Plan of Treatment Not on file documented as of this encounter Visit Diagnoses Diagnosis Influenza with other respiratory manifestations- Primary documented in this encounter Care Teams Meal Packer Relationship Specialty Start Date End Date Manuel Agarwal DO [address] [facility] 1 [place] [address] PCP - General Internal Medicine 07/31/16 documented as of this encounter
--- OUTSIDE RECORDS SUMMARY | 2025-06-15 11:54 | XMS_ITS | Encounter Summary ---
Author Organization [facility] Address [address] [place] [address] Care Team Providers Care Counter Server Name Role Phone Manuel Agarwal DO Primary Care Provide r Encounter Details Date Type Department Care Team (Latest Contact Info) Description 04/23/2000 Outpatient Historical [facility] Medicine [place] [address] [facility] 60 [place] [phone] Alisa King NO ADDRESS ON FILE Allergic rhinitis due to other allergen (Primary Dx); Other disorders of Eustachian tube(381.89) Social History Tobacco Use Types Packs/Day Years Used Date Smoking Tobacco: Never Assessed Comments Unknown Sex and Gender Information Value Date Recorded Sex Assigned at Not on file Legal Sex Female 4:01 AM CONTRACT COORDINATOR Gender Identity Not on file Sexual Orientation Not on file documented as of this encounter Plan of Treatment Not on file documented as of this encounter Visit Diagnoses Diagnosis Allergic rhinitis due to other allergen- Primary Other disorders of Eustachian tube(381.89) Other disorders of Eustachian tube documented in this encounter Care Teams Counter Server Relationship Specialty Start Date End Date Manuel Agarwal DO [address] [place] [address] [facility] 1 [place] [address] PCP - General Internal Medicine 07/31/16 documented as of this encounter
--- OUTSIDE RECORDS SUMMARY | 2025-06-15 11:54 | XMS_ITS | Encounter Summary ---
Author Organization [facility] Address [address] [place] [address] Care Team Providers Care Principal Technical Architect Name Role Phone Manuel Agarwal DO Primary Care Provide r Reason for Referral * Outpatient Services (Routine) - Closed Specialty Diagnoses / Procedures Referred By Contac t Referred To Contact Diagnoses Visit for screening mammogram Procedures MAMMO DIGITAL SCREEN BILAT Gina Kumar, [facility] [address] [place] [address] Phone: tel: fax: Referral ID Status Reason Start Date Expiration Date Visits Re quested Visits Authorized [id number] Closed 07/02/2012 07/02/2013 1 1 Encounter Details Date Type Department Care Team (Late st Contact Info) Description 07/02/2012 Ancillary Orders [facility] [address] [place] [phone] Gina Kumar, [facility] [address] [place], [place] [phone] Visit for screening mammogram Social History Tobacco Use Types Packs/Day Years Used Date Smoking Tobacco: Never Smokeless Tobacco: Never Alcohol Use Standard Drinks/Week Comments Not Asked 0 (1 standard drink = 0.6 oz pur e alcohol) Comments No Sex and Gender Information Value Date Recorded Sex Assigned at Not on file Legal Sex Female 4:01 AM PATIENT DAY COORDINATOR Gender Identity Not on file Sexual Orientation Not on file documented as of this encounter Plan of Treatment Not on file documented as of this encounter Results * MAMMO DIGITAL SCREEN BILAT (07/07/2012 1:42 PM CDT) Anatomical Region Laterality Modality Breast Bilateral Mammography Narrative 07/09/2012 8:05 AM CDT Bilateral Mammogram Reason for Exam: Screening Comparison: No prior exam(s) for comparison. Findings: Bilateral CC and MLO views were obtained. This examination was reviewed with the aid of a computer-aided detection system(CAD). The breast tissue density is average. Procedure Note Gary Garcia MD - 07/09/2012 Bilateral Mammogram Reason for Exam: Screening Comparison: No prior exam(s) for comparison. Findings: Bilateral CC and MLO views were obtained. This examination was reviewed with the aid of a computer-aided detectionsystem(CAD). The breast tissue density is average. Hunter Mac MD MAMMO ORDERABLES Final Res ult documented in this encounter Visit Diagnoses Diagnosis Visit for screening mammogram Other screening mammogram Visit for screening mammogram Other screening mammogram documented in this encounter Care Teams Principal Technical Architect Relationship Specialty Start Date End Date Manuel Agarwal DO [address] [address] PCP - General Internal Medicine 07/31/16 documented as of this encounter
--- OUTSIDE RECORDS SUMMARY | 2025-06-15 11:54 | XMS_ITS | Encounter Summary ---
Author Organization [facility] Address [address] [place] [address] Care Team Providers Care Home Comfort Advisor Name Role Phone Manuel Agarwal DO Primary Care Provide r Encounter Details Date Type Department Care Team (Late st Contact Info) Description 10/16/1998 Outpatient Historical [facility] Lucas Villarreal DO [address] [place] [address] Abnormal loss of weight (Primary Dx); Abdominal pain, right lower quadrant; Other specified disease of white blood cells Social History Tobacco Use Types Packs/Day Years Used Date Smoking Tobacco: Never Assessed Comments Unknown Sex and Gender Information Value Date Recorded Sex Assigned at Not on file Legal Sex Female 4:01 AM DIRECTOR COST Gender Identity Not on file Sexual Orientation Not on file documented as of this encounter Plan of Treatment Not on file documented as of this encounter Visit Diagnoses Diagnosis Abnormal loss of weight- Primary Abnormal loss of weight and underweight Abdominal pain, right lower quadrant Other specified disease of white blood cells documented in this encounter Care Teams Home Comfort Advisor Relationship Specialty Start Date End Date Manuel Agarwal DO [address] [place] [address] [facility] 1 [place] [address] PCP - General Internal Medicine 07/31/16 documented as of this encounter
--- OUTSIDE RECORDS SUMMARY | 2025-06-15 11:54 | XMS_ITS | Encounter Summary ---
Author Organization [facility] Address [address] [place] [address] Care Team Providers Care Advanced Manufacturing Associate Name Role Phone Manuel Agarwal DO Primary Care Provide r Encounter Details Date Type Department Care Team (Latest Contact Info) Description 04/24/2004 Outpatient Historical [facility] Ear, Nose and Throat [address] [place] [address] Seth Hu MD [address] [facility] [address] [place] [address] CHR NONSUP OM NOS/NEC (Primary Dx) Social History Tobacco Use Types Packs/Day Years Used Date Smoking Tobacco: Never Assessed Comments Unknown Sex and Gender Information Value Date Recorded Sex Assigned at Not on file Legal Sex Female 4:01 AM DIRECTOR OF PSYCHIATRY Gender Identity Not on file Sexual Orientation Not on file documented as of this encounter Plan of Treatment Not on file documented as of this encounter Visit Diagnoses Diagnosis Other and unspecified chronic nonsuppurative otitis media- Primary documented in this encounter Care Teams Advanced Manufacturing Associate Relationship Specialty Start Date End Date Manuel Agarwal DO [address] [facility] 1 [place] [address] PCP - General Internal Medicine 07/31/16 documented as of this encounter
--- OUTSIDE RECORDS SUMMARY | 2025-06-15 11:54 | XMS_ITS | Encounter Summary ---
Author Organization [facility] Address [address] [place] [address] Care Team Providers Care Regional Director Name Role Phone Manuel Agarwal DO Primary Care Provide r Encounter Details Date Type Department Care Team (Latest Contact Info) Description 09/16/1999 Outpatient Historical [facility]- [address] [place] [phone] Kofi Muñoz DO NO ADDRESS ON FILE Other, multiple, and unspecified sites, insect bite, nonvenomous, without mention of infection(919.4) (Primary Dx); Need vaccination-viral disease Social History Tobacco Use Types Packs/Day Years Used Date Smoking Tobacco: Never Assessed Comments Unknown Sex and Gender Information Value Date Recorded Sex Assigned at Not on file Legal Sex Female 4:01 AM LABORATORY OPERATIONS COORDINATOR Gender Identity Not on file Sexual Orientation Not on file documented as of this encounter Plan of Treatment Not on file documented as of this encounter Visit Diagnoses Diagnosis Other, multiple, and unspecified sites, insect bite, nonvenomous, without mention of infection(919.4)- Primary Other, multiple, and unspecified sites, insect bite, nonvenomous, without mention of infection Need vaccination-viral disease Need for prophylactic vaccination and inoculation against other viral diseases documented in this encounter Care Teams Regional Director Relationship Specialty Start Date End Date Manuel Agarwal DO [address] [address] PCP - General Internal Medicine 07/31/16 documented as of this encounter
--- OUTSIDE RECORDS SUMMARY | 2025-06-15 11:54 | XMS_ITS | Encounter Summary ---
Author Organization [facility] Address [address] [place] [address] Care Team Providers Care Medical Concierge Name Role Phone Manuel Agarwal DO Primary Care Provide r Encounter Details Date Type Department Care Team (Late st Contact Info) Description 07/19/2003 Outpatient Historical [facility] Imaging Services [facility] [place] [address] Kofi Muñoz DO NO ADDRESS ON FILE Social History Tobacco Use Types Packs/Day Years Used Date Smoking Tobacco: Never Assessed Comments Unknown Sex and Gender Information Value Date Recorded Sex Assigned at Not on file Legal Sex Female 4:01 AM TRAFFIC AGENT Gender Identity Not on file Sexual Orientation Not on file documented as of this encounter Plan of Treatment Not on file documented as of this encounter Visit Diagnoses Not on filedocumented in this encounter Care Teams Medical Concierge Relationship Specialty Start Date End Date Manuel Agarwal DO [address] [facility] 1 [place] [address] PCP - General Internal Medicine 07/31/16 documented as of this encounter
--- OUTSIDE RECORDS SUMMARY | 2025-06-15 11:54 | XMS_ITS | Encounter Summary ---
Author Organization [facility] Address [address] [place] [address] Care Team Providers Care Television News Reporter Name Role Phone Manuel Agarwal DO Primary Care Provide r Encounter Details Date Type Department Care Team (Latest Contact Info) Description 01/09/2004 Outpatient Historical [facility] Medicine [place] [address] [facility] 60 [place] [phone] Kofi Muñoz DO NO ADDRESS ON FILE OSTEOARTHROS NOS-UNSPEC (Primary Dx); POSTSURGICAL STATES NEC; UNSPEC CONSTIPATION Social History Tobacco Use Types Packs/Day Years Used Date Smoking Tobacco: Never Assessed Comments Unknown Sex and Gender Information Value Date Recorded Sex Assigned at Not on file Legal Sex Female 4:01 AM FIRE ALARM INSTALLER Gender Identity Not on file Sexual Orientation Not on file documented as of this encounter Plan of Treatment Not on file documented as of this encounter Visit Diagnoses Diagnosis Osteoarthrosis, unspecified whether generalized or localized, unspecified site- Primary Other postprocedural status(V45.89) Other postprocedural status Unspecified constipation documented in this encounter Care Teams Television News Reporter Relationship Specialty Start Date End Date Manuel Agarwal DO [address] [facility] 1 [place] [address] PCP - General Internal Medicine 07/31/16 documented as of this encounter
--- OUTSIDE RECORDS SUMMARY | 2025-06-15 11:54 | XMS_ITS | Encounter Summary ---
Author Organization [facility] Address [address] [place] [address] Care Team Providers Care Food Beverage Server Name Role Phone Manuel Agarwal DO Primary Care Provide r Reason for Referral * Radiology Services (Routine) - Closed Specialty Diagnoses / Procedures Referred By Contac t Referred To Contact Radiology Diagnoses Screening breast examination Procedures MAMMO SCREEN BILAT W OR WO CAD Manuel Agarwal DO [address] [facility] 1 [place] [address] Phone: tel: fax: [facility] [address] [place] [address] Phone: tel: fax: Referral ID Status Reason Start Date Expiration Date V isits Requested Visits Authorized [id number] Closed [facility] CTS to Schedule (SGF) 01/20/2019 02/20/2020 1 1 ING CONSULTANT Encounter Details Date Type Department Care Team (Late st Contact Info) Description 01/20/2019 Ancillary Orders [facility] Centralized Scheduling [address] [place] [address] Manuel Agarwal DO [address] [facility] 1 [place] [address] Screening breast examination Social History Tobacco Use Types Packs/Day Years Used Date Smoking Tobacco: Never Smokeless Tobacco: Never Alcohol Use Standard Drinks/Week Comments No 0 (1 standard drink = 0.6 oz pur e alcohol) Comments No Sex and Gender Information Value Date Recorded Sex Assigned at Not on file Legal Sex Female 4:01 AM LEASING CONSULTANT Gender Identity Not on file Sexual Orientation Not on file Occupation Industry Job Start Date Job End Date Not on file Not on file Not on file Not on file Not on file Not on file Not on file Not on file documented as of this encounter Plan of Treatment Not on file documented as of this encounter Results * MAMMO SCREEN BILAT W OR WO CAD (03/01/2019 1:43 PM CDT) Anatomical Region Laterality Modality Breast Bilateral Mammography Narrative 03/03/2019 2:38 PM CDT Bilateral Mammogram Reason for Exam: [...] Agarwal DO MAMMO ORDERABLES Sania l Result documented in this encounter Visit Diagnoses Diagnosis Screening breast examination Other screening breast examination Screening breast examination Other screening breast examination documented in this encounter Care Teams Food Beverage Server Relationship Specialty Start Date End Date Manuel Agarwal DO [address] [address] PCP - General Internal Medicine 07/31/16 documented as of this encounter
--- OUTSIDE RECORDS SUMMARY | 2025-06-15 11:54 | XMS_ITS | Encounter Summary ---
Author Organization [facility] Address [address] [place] [address] Care Team Providers Care Surgical Consultant Name Role Phone Agarwal Manuel Ventura Primary Care Provide r Reason for Referral * Outpatient Services (Routine) - Closed Specialty Diagnoses / Procedures Referred By Contalejandra t Referred To Contact Diagnoses Disorder of rotator cuff of both shoulders Procedures XR FLUORO NEEDLE PLACEMENT Montez Carson MD Referral ID Status Reason Start Date Expiration Date Visits Re quested Visits Authorized [id number] Closed 04/30/2015 05/30/2016 1 1 Encounter Details Date Type Department Care Team (Late st Contact Info) Description 04/30/2015 Ancillary Orders [facility] Pain Management Procedures [place] [address] [place] [phone] Montez Carson MD NO ADDRESS ON FILE Disorder of rotator cuff of both shoulders (Primary Dx) Social History Tobacco Use Types Packs/Day Years Used Date Smoking Tobacco: Never Smokeless Tobacco: Never Alcohol Use Standard Drinks/Week Comments No 0 (1 standard drink = 0.6 oz pur e alcohol) Comments No Sex and Gender Information Value Date Recorded Sex Assigned at Not on file Legal Sex Female 4:01 AM PROPOSAL ANALYST Gender Identity Not on file Sexual Orientation Not on file Occupation Industry Job Start Date Job End Date Not on file Not on file Not on file Not on file Not on file Not on file Not on file Not on file documented as of this encounter Plan of Treatment Not on file documented as of this encounter Results * XR FLUORO NEEDLE PLACEMENT (04/30/2015 10:16 AM CDT) Narrative Sesar Pineda, RT - 04/30/2015 10:17 AM CDT Order information only. Exam was auto-finalized. us Montez Carson MD DIAGNOSTIC IMAGING ORDERAB LES Final Result documented in this encounter Visit Diagnoses Diagnosis Disorder of rotator cuff of both shoulders- Primary Disorders of bursae and tendons in shoulder region, unspecified Disorder of rotator cuff of both shoulders Disorders of bursae and tendons in shoulder region, unspecified documented in this encounter Care Teams Surgical Consultant Relationship Specialty Start Date End Date Manuel Agarwal DO [address] [address] PCP - General Internal Medicine 07/31/16 documented as of this encounter
--- OUTSIDE RECORDS SUMMARY | 2025-06-15 11:54 | XMS_ITS | Encounter Summary ---
Author Organization [facility] Address [address] [place] [address] Care Team Providers Care Billing Clerk Name Role Phone Manuel Agarwal DO Primary Care Provide r Encounter Details Date Type Department Care Team (Latest Contact Info) Description 08/26/1999 Outpatient Historical [facility] Medicine [place] [address] [facility] 60 [place] [phone] Kofi Muñoz DO NO ADDRESS ON FILE Breast screening, unspecified (Primary Dx) Social History Tobacco Use Types Packs/Day Years Used Date Smoking Tobacco: Never Assessed Comments Unknown Sex and Gender Information Value Date Recorded Sex Assigned at Not on file Legal Sex Female 4:01 AM OCCUPATIONAL HEALTH COORDINATOR Gender Identity Not on file Sexual Orientation Not on file documented as of this encounter Plan of Treatment Not on file documented as of this encounter Visit Diagnoses Diagnosis Breast screening, unspecified- Primary documented in this encounter Care Teams Billing Clerk Relationship Specialty Start Date End Date Manuel Agarwal DO [address] [phone] PCP - General Internal Medicine 07/31/16 documented as of this encounter
--- OUTSIDE RECORDS SUMMARY | 2025-06-15 11:54 | XMS_ITS | Encounter Summary ---
Author Organization [facility] Address [address] [place] [address] Care Team Providers Care Business Banking Representative Name Role Phone Manuel Agarwal DO Primary Care Provide r Encounter Details Date Type Department Care Team (Latest Contact Info) Description 06/07/2004 Outpatient Historical [facility] Medicine [place] [address] [facility] 60 [place] [phone] Serina Kessler NP NO ADDRESS ON FILE VAGINITIS NOS (Primary Dx); CERVICALGIA; BACKACHE NOS; Hemangioma skin Social History Tobacco Use Types Packs/Day Years Used Date Smoking Tobacco: Never Assessed Comments Unknown Sex and Gender Information Value Date Recorded Sex Assigned at Not on file Legal Sex Female 4:01 AM ACCOUNTING PROFESSOR Gender Identity Not on file Sexual Orientation Not on file documented as of this encounter Plan of Treatment Not on file documented as of this encounter Visit Diagnoses Diagnosis Vaginitis and vulvovaginitis, unspecified- Primary Cervicalgia Backache, unspecified Hemangioma skin Hemangioma of skin and subcutaneous tissue documented in this encounter Care Teams Business Banking Representative Relationship Specialty Start Date End Date Manuel Agarwal DO [address] [facility] 1 [place] [address] PCP - General Internal Medicine 07/31/16 documented as of this encounter
--- OUTSIDE RECORDS SUMMARY | 2025-06-15 11:54 | XMS_ITS | Clinical Summary ---
Author Organization [facility] Address [address] [place] [address] Care Team Providers Care T Rail Turner Name Role Phone Maneul Agarwal Primary Care Provide r Allergies Active Allergy Reactions Criticality Noted Date Comments Atorvastatin Muscle Pain Low 09/28/2009 Codeine Bradycardia Medium 01/15/2010 Ezetimibe Hives High 09/28/2009 Iodinated Contrast Media Rash Low 09/28/2009 Latex Anaphylaxis High 10/04/2014 Medications aspirin (MILEY) 81 mg Oral Tab Take 1 Tab by mouth daily. 30 Tab 0 9 Active clopidogrel (PLAVIX) 75 mg Oral Tab Take 1 Tab by mouth daily. 90 Tab 3 0 Active nitroglycerin (NITROSTAT) 0.[address] 0.4 mg under tongue every 5 minutes as needed. Active acetaminophen (TYLENOL) 500 mg tabletIndications: Disorder of right rotator cuff,Scapulocostal syndrome, right,Cervical spondylosis without myelopathy,Lateral epicondylitis (tennis elbow), right Take 500 mg by mouth every 6 hours as needed for Pain. 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 Gender Identity Not on file Sexual Orientation Not on file Occupation Industry Job Start Date Job End Date Not on file Not on file Not on file Not on file Not on file Not on file Not on file Not on file Last Filed Vital Signs Vital Sign Reading Time Taken Comments Blood Pressure 122/72 09/15/2016 8:41 AM CDT Pulse 62 09/15/2016 8:41 AM CDT Temperature 36.6 C (97.8 F) 04/30/2015 9:37 AM CDT Respiratory Rate 16 04/30/2015 10:33 AM CDT Oxygen Saturation 97% 04/30/2015 10:33 AM CDT Inhaled Oxygen Concentration - - Weight 73.6 kg (162 lb 3.2 oz) 09/15/2016 8:41 A M CDT Height 160 cm (5' 3 ) 09/15/2016 8:41 AM CDT Body Mass Index 28.73 09/15/2016 8:41 AM CDT Plan of Treatment Health Maintenance Due Date Last Done Comments DTAP/TDAP/TD VACCINES (1 - Tdap) 1970 COLORECTAL SCREENING 02/14/1996 FIT-DNA Q 3 years 02/14/1996 Flex Sig/CT Colonography Q 5 years 02/14/1996 Colorectal Cancer Screening 01/29/2001 FIT/FOBT Q 1 year 01/29/2001 01/30/2000 PNEUMOCOCCAL VACCINE 50+ YEA RS (1 of 1 - PCV) 2001 ZOSTER VACCINE (1 of 2) 2001 RSV VACCINE (60+ or ) (1 - Risk 60-74 years 1-dose series) 2011 OSTEOPOROSIS SCREENING 02/14/2016 BREAST CANCER SCREENING 03/01/2020 03/01/20 19, 10/23/2015, 10/03/2014, Additional history exists INFLUENZA VACCINE (#1) 2025 12/14/2002, 1998 Procedures Procedure Name Priority Date/Time Associated Diagnosis Comments MAMMO SCREEN BILAT W OR WO CAD Routine 03/01/2019 1:43 PM CDT Screening breast examination from Last 3 Months or Most Recently Relevant to Health Maintenance Results * MAMMO SCREEN BILAT W OR [...] Most Recently Relevant to Health Maintenance Insurance [address] [place] [address] MEDICARE PART A AND B [facility] Member Subscriber Plan / Payer (Ef fective 2012-Present) Name:Stephanie Weller Relation to Subscriber:Self Name:Stephanie Weller Payer ID:[id number] Group ID:Not on file Type:iFollo Address: [facility] [address] Advance Directives For more information, please contact: [phone] * Full Code (Latest Code Status on File) Date Activated Date Inactivated Comments 10/30/2014 10:38 AM 10/30/2014 1:33 PM Care Teams T Rail Turner Relationship Specialty Start Date End Date Manuel Agarwal DO [address] [address] PCP - General Internal Medicine 07/31/16
--- OUTSIDE RECORDS SUMMARY | 2025-06-15 11:54 | XMS_ITS | Encounter Summary ---
Author Organization [facility] Address [address] [place] [address] Care Team Providers Care Sequencing Machine Operator Name Role Phone Manuel Agarwal DO Primary Care Provide r Encounter Details Date Type Department Care Team (Late st Contact Info) Description 07/02/2012 Ancillary Orders [facility] [address] [place] [phone] Gina Kumar, [facility] [address] [place] [address] Social History Tobacco Use Types Packs/Day Years Used Date Smoking Tobacco: Never Smokeless Tobacco: Never Alcohol Use Standard Drinks/Week Comments Not Asked 0 (1 standard drink = 0.6 oz pur e alcohol) Comments No Sex and Gender Information Value Date Recorded Sex Assigned at Not on file 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
--- OUTSIDE RECORDS SUMMARY | 2025-06-15 11:54 | XMS_ITS | Encounter Summary ---
Author Organization [facility] Address [address] [place] [address] Care Team Providers Care Preschool Principal Name Role Phone Manuel Agarwal DO Primary Care Provide r Encounter Details Date Type Department Care Team (Latest Contact Info) Description 01/19/2015 Ancillary Orders [facility] Pre-Registration [place] CALL TO MAKE APPOINTMENT ONLY [address] [place] [address] Toan Olivas MD [address] [address] Right shoulder pain (Primary Dx) Social History Tobacco Use Types Packs/Day Years Used Date Smoking Tobacco: Never Smokeless Tobacco: Never Alcohol Use Standard Drinks/Week Comments No 0 (1 standard drink = 0.6 oz pur e alcohol) Comments No Sex and Gender Information Value Date Recorded Sex Assigned at Not on file 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 Gender Identity Not on file Sexual Orientation Not on file Occupation Industry Job Start Date Job End Date Not on file Not on file Not on file Not on file Not on file Not on file Not on file Not on file documented as of this encounter Plan of Treatment Not on file documented as of this encounter Visit Diagnoses Diagnosis Right shoulder pain- Primary Pain in joint, shoulder region documented in this encounter Care Teams Preschool Principal Relationship Specialty Start Date End Date Manuel Agarwal DO [address] [facility] 1 [place] [address] PCP - General Internal Medicine 07/31/16 documented as of this encounter
--- OUTSIDE RECORDS SUMMARY | 2025-06-15 11:54 | XMS_ITS | Encounter Summary ---
Author Organization [facility] Address [address] [place] [address] Care Team Providers Care Soybean Specialties Cook Name Role Phone Manuel Agarwal DO Primary Care Provide r Encounter Details Date Type Department Care Team (Latest Contact Info) Description 09/07/1998 Outpatient Historical [facility] Medicine [place] [address] [facility] 60 [place] [phone] Kofi Muñoz DO NO ADDRESS ON FILE Abnormal loss of weight (Primary Dx) Social History Tobacco Use Types Packs/Day Years Used Date Smoking Tobacco: Never Assessed Comments Unknown Sex and Gender Information Value Date Recorded Sex Assigned at Not on file 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
--- OUTSIDE RECORDS SUMMARY | 2025-06-15 11:54 | XMS_ITS | Encounter Summary ---
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
--- OUTSIDE RECORDS SUMMARY | 2025-06-15 11:54 | XMS_ITS | Encounter Summary ---
Author Organization [facility] Address [address] [place] [address] Care Team Providers Care Manager Rfid Name Role Phone AgarwalManueliel Primary Care Provide r Reason for Referral * Outpatient Services (Routine) - Closed Specialty Diagnoses / Procedures Referred By Contac t Referred To Contact Radiology Diagnoses Encounter for screening mammogram for breast cancer Procedures MAMMO DIGITAL SCREEN BILAT Hunter Mac MD [address] [address] Phone: tel: fax: [facility] [address] [facility] [place] [address] Phone: tel: fax: Referral ID Status Reason Start Date Expiration Date V isits Requested Visits Authorized [id number] Closed [facility] CTS to Schedule (SGF) 10/11/2015 11/10/2016 1 1 FILLER Encounter Details Date Type Department Care Team ([facility] st Contact Info) Description 10/11/2015 Ancillary Orders [facility] Centralized Scheduling [address] [place] [address] Hunter Mac MD [address] [address] Screening (Primary Dx); Encounter for screening mammogram for breast cancer Social History Tobacco Use Types Packs/Day Years Used Date Smoking Tobacco: Never Smokeless Tobacco: Never Alcohol Use Standard Drinks/Week Comments No 0 (1 standard drink = 0.6 oz pur e alcohol) Comments No Sex and Gender Information Value Date Recorded Sex Assigned at Not on file Legal Sex Female 4:01 AM TANK FILLER Gender Identity Not on file Sexual Orientation [...] encounter Results * MAMMO DIGITAL SCREEN BILAT (10/23/2015 2:29 PM TANK FILLER) Anatomical Region Laterality Modality Breast Bilateral Mammography Narrative 10/24/2015 9:07 AM TANK FILLER Bilateral Mammogram Reason for Exam: Screening Comparison: Compared to: 10/03/2014 MAMMO DIGITAL SCREEN BILAT, 09/29/2013 MAMMO DIGITAL SCREEN BILAT, 07/07/2012 MAMMO DIGITAL SCREEN BILAT, 10.21.10 Findings: Bilateral CC and MLO views were obtained. This examination was reviewed with the aid of a computer-aided detection system(CAD). The breast tissue density is average. No significant new findings since the prior mammogram(s). Hunter Mac MD MAMMO ORDERABLES Final Res ult documented in this encounter Visit Diagnoses Diagnosis Screening- Primary Screening for unspecified condition Encounter for screening mammogram for breast cancer Encounter for screening mammogram for breast cancer documented in this encounter Care Teams Manager Rfid Relationship Specialty Start Date End Date Manuel Agarwal DO [address] [address] PCP - General Internal Medicine 07/31/16 documented as of this encounter
--- OUTSIDE RECORDS SUMMARY | 2025-06-15 11:54 | XMS_ITS | Encounter Summary ---
Author Organization [facility] Address [address] [place] [address] Care Team Providers Care Cook Dinner Name Role Phone Manuel Agarwal Primary Care Provide r Encounter Details Date Type Department Care Team (Late st Contact Info) Description 10/28/2007 Outpatient Historical [facility] IN BED Neno Dunham MD [address] [place] [address] [place] [address] Intermediate Coronary Syndrome (CMS/HCC) Social History Tobacco Use Types Packs/Day Years Used Date Smoking Tobacco: Never Assessed Comments Unknown Sex and Gender Information Value Date Recorded Sex Assigned at Not on file 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 INR 1.0 INTERFACE SYSTEM Comment: Expected Values for INR: DVT/PE Goal INR 2.5; range 2.0 - 3.0 Valve Replacement Tissue Goal INR 2.5; range 2.0 - 3.0 Mechanical Goal INR 3.0; range 2.5 - 3.5 POST-OK Goal INR 2.5; range 2.0 - 3.0 [...] 11/05/2006 note change in APTT Normal Range. 10/19/2007 9:37 PM SMELLER us Neno Dunham MD HEMATOLOGY ORDERABLES Edited INTERFACE SYSTEM Refer to clinic/hospital department * CBC WITH DIFFERENTIAL (10/19/2007 9:37 PM SMELLER) WBC 5.8 4.8 - 10.8 K/ul INTERFACE SYSTEM RBC 4.24 4.20 - 5.40 Mil/ul INTERFACE SYSTEM HEMOGLOBIN 12.5 12.0 - 16.0 g/dL INTERFACE SYSTEM HEMATOCRIT 36.8 36.0 - 46.0 % INTERFACE SYSTEM MCV 86.8 84.0 - 103.0 Fl INTERFACE SYSTEM MCH 29.5 27.0 - 34.0 pg INTERFACE SYSTEM MCHC 34.0 30.0 - 35.0 g/dL INTERFACE SYSTEM RDW 12.3 11.0 - 14.5 % INTERFACE SYSTEM PLATELETS 212 140 - 440 K/ul INTERFACE SYSTEM MPV 10.2 8.9 - 12.8 Fl INTERFACE SYSTEM NEUTROPHILS 60.4 42.2 - 75.2 % INTERFACE SYSTEM LYMPHOCYTES 32.1 24.0 - 44.0 % INTERFACE SYSTEM MONOCYTES 5.7 2.0 - 10.0 % INTERFA CE SYSTEM EOSINOPHILS 1.5 0.0 - 7.0 % INTERF LOC SYSTEM BASOPHILS 0.3 0.0 - 1.0 % INTERFAC E SYSTEM NEUTROPHIL ABSOLUTE 3.5 2.0 - 8.0 K/ul INTERFACE SYSTEM LYMPHOCYTE ABSOLUTE 1.9 1.2 - 4.0 K/ul INTERFACE SYSTEM MONOCYTE ABSOLUTE 0.3 0.1 - 0.6 K/ul INTERFACE SYSTEM EOSINOPHIL ABSOLUTE 0.1 0.0 - 0.7 K/ul INTERFACE SYSTEM BASOPHILS ABSOLUTE 0.0 0.0 - 0.2 K/ul INTERFACE SYSTEM PERIPHERAL BLOOD SMEAR REVIEW Automated Diff Automated Diff INTERFACE SYSTEM 10/19/2007 9:37 PM SMELLER Neno Dunham MD HEMATOLOGY ORDERABLES Edited Performing Organization Address [facility] de Phone Number INTERFACE SYSTEM Refer to clinic/hospital department * (ABNORMAL) BASIC METABOLIC PANEL (10/19/2007 9:37 PM SMELLER) GLUCOSE 123(H) 70 - 110 mg/dL INTERFACE SYSTEM BUN 16 7 - 17 mg/dL INTERFACE SYSTEM CREATININE 0.8 0.7 - 1.2 mg/dL INTERFACE SYSTEM SODIUM 138 136 - 145 mEq/L INTERFACE SYSTEM POTASSIUM 3.7 3.5 - 5.0 mEq/L INTERFACE SYSTEM CHLORIDE 104 95 - 110 mEq/L INTERFACE SYSTEM CO2 25 22 - 32 mmol/l INTERFACE SYSTEM CALCIUM 9.3 8.4 - 10.5 mg/dL INTERFACE SYSTEM ANION GAP 13 9 - 20 mEq/L INTERFACE SYSTEM OSMOLALITY, CALCULATED 286 275 - 295 mOsm/Kg INTERFACE SYSTEM 10/19/2007 9:37 PM SMELLER Neno Dunham MD CHEMISTRY ORDERABLES Edited Performing Organization Address [facility] Phone Number INTERFACE SYSTEM Refer to clinic/hospital department documented in this encounter Visit Diagnoses Diagnosis Intermediate coronary syndrome (CMS/HCC) Intermediate coronary syndrome documented in this encounter Care Teams Cook Dinner Relationship Specialty Start Date End Date Manuel Agarwal DO [address] [address] PCP - General Internal Medicine 07/31/16 documented as of this encounter
--- OUTSIDE RECORDS SUMMARY | 2025-06-15 11:54 | XMS_ITS | Encounter Summary ---
Author Organization [facility] Address [address] [place] [address] Care Team Providers Care Cane Piler Name Role Phone Manuel Agarwal DO Primary Care Provide r Encounter Details Date Type Department Care Team (Latest Contact Info) Description 06/06/2002 Outpatient Historical [facility] Medicine [place] [address] [facility] [address] [place] [phone] Kofi Muñoz DO NO ADDRESS ON FILE NONINFEC GASTROENTERIT NEC (Primary Dx); HEAT EXHAUSTION NOS Social History Tobacco Use Types Packs/Day Years Used Date Smoking Tobacco: Never Assessed Comments Unknown Sex and Gender Information Value Date Recorded Sex Assigned at Not on file 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 Gender Identity Not on file Sexual Orientation Not on file documented as of this encounter Plan of Treatment Not on file documented as of this encounter Visit Diagnoses Diagnosis Other and unspecified noninfectious gastroenteritis and colitis(558.9)- Primary Other and unspecified noninfectious gastroenteritis and colitis Heat exhaustion, unspecified documented in this encounter Care Teams Cane Piler Relationship Specialty Start Date End Date Manuel Agarwal DO [address] [facility] 1 [place] [address] PCP - General Internal Medicine 07/31/16 documented as of this encounter
--- OUTSIDE RECORDS SUMMARY | 2025-06-15 11:54 | XMS_ITS | Encounter Summary ---
Author Organization [facility] Address [address] [place] [address] Care Team Providers Care Gum Sprayer Name Role Phone Manuel Agarwal DO Primary Care Provide r Encounter Details Date Type Department Care Team (Latest Contact Info) Description 12/06/1999 Outpatient Historical [facility] Medicine [place] [address] [facility] 60 [place] [phone] Satinder Garcia MD [address] [facility] 200 [place] [phone] Dysfunct eustachian tube (Primary Dx); Acute pharyngitis Social History Tobacco Use Types Packs/Day Years Used Date Smoking Tobacco: Never Assessed Comments Unknown Sex and Gender Information Value Date Recorded Sex Assigned at Not on file 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
--- OUTSIDE RECORDS SUMMARY | 2025-06-15 11:54 | XMS_ITS | Encounter Summary ---
Author Organization [facility] Address [address] [place] [address] Care Team Providers Care Electrical Machinist Name Role Phone Manuel Agarwal DO Primary Care Provide r Encounter Details Date Type Department Care Team (Late st Contact Info) Description 12/14/2007 Outpatient Historical [facility] [place] [address] [place] [address] Pradip Spencer MD [address] [facility] [address] [place] [phone] Social History Tobacco Use Types Packs/Day Years Used Date Smoking Tobacco: Never Assessed Comments Unknown Sex and Gender Information Value Date Recorded Sex Assigned at Not on file Legal Sex Female 4:01 AM INSOLE BOTTOM FILLER Gender Identity Not on file Sexual Orientation Not on file documented as of this encounter Plan of Treatment Not on file documented as of this encounter Visit Diagnoses Not on filedocumented in this encounter Care Teams Electrical Machinist Relationship Specialty Start Date End Date Manuel Agarwal DO [address] [facility] 1 [place] [address] PCP - General Internal Medicine 07/31/16 documented as of this encounter
--- OUTSIDE RECORDS SUMMARY | 2025-06-15 11:54 | XMS_ITS | Encounter Summary ---
Author Organization [facility] Address [address] [place] [address] Care Team Providers Care Deputy Chief Sheriff Name Role Phone Manuel Agarwal DO Primary Care Provide r Encounter Details Date Type Department Care Team (Latest Contact Info) Description 12/14/2002 Outpatient Historical [facility] Medicine [place] [address] [facility] [address] [place] [id number] Kofi Muñoz DO NO ADDRESS ON FILE VACCINE FOR INFLUENZA (Primary Dx) Social History Tobacco Use Types Packs/Day Years Used Date Smoking Tobacco: Never Assessed Comments Unknown Sex and Gender Information Value Date Recorded Sex Assigned at Not on file 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
[2025-06-15 12:00] VITALS: BP 160/79; PULSE 66; RESP 16; TEMP 36.9; O2SAT 98
[2025-06-15 12:32] LABS: Hematocrit 41.0 % (36-47); Hemoglobin 13.50 g/dL (11.27-16.99); Mean Corpuscular HGB Conc 32.9 g/dL (30-55); Mean Corpuscular Hemoglobin 29.2 pg (27-33); Mean Corpuscular Volume 88.6 fl (85-98); Nucleated Red Blood Cells % 0 %; Platelet Count 301 10^3/cmm (157-399); Red Blood Count 4.63 10^6/uL (3.85-5.65); White Blood Count 9.55 10^3/uL (3.29-11.43)
[2025-06-15 12:51] LABS: Alanine Aminotransferase 16 U/L (0-33); Albumin Level 4.3 g/dL (3.5-5.2); Alkaline Phosphatase 76 U/L (35-105); Anion Gap 17.5 (5-19); Aspartate Amino Transferase 17 U/L (0-32); Blood Urea Nitrogen 11 mg/dL (8-23); Calcium 9.4 mg/dL (8.5-10.5); Carbon Dioxide 25 mmol/L (22-29); Chloride 98 mmol/L (98-107); Globulin 3.5 g/dL (1.3-4.6); Glucose 99 mg/dL (65-115); Lipase 24 U/L (13-60); Osmolality Calculated 283 mOsm/kg (285-295); Potassium 3.5 mmol/L (3.5-5.1); Sodium 137 mmol/L (136-145); Total Protein 7.8 g/dL (6.6-8.7)
[2025-06-15 13:29] LABS: Glucose Urine UA Negative (Normal); Nitrate Urine Negative (Negative); Specific Gravity, Urine 1.014 (1.005-1.030)
[2025-06-15 13:32] LABS: Add Urine Microscopic? YES
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
--- NOTE | 2025-06-15 14:14 | CT_ITS ---
WS: [id number] CT ABDOMEN PELVIS TECHNIQUE: Noncontrast CT of the abdomen and pelvis with coronal and sagittal reformatted images. CLINICAL INFORMATION: Abdominal pain status post colonoscopy COMPARISON: None. DLP: 705.[address] scans at [facility] use at least one of these dose optimization techniques: automated exposure control; mA and/or kV adjustment per patient size (includes targeted exams where dose is matched to clinical indication); or iterative reconstruction. FINDINGS: Small to moderate esophageal hiatal hernia. Slight atelectasis LEFT lower lobe. Normal noncontrast liver and spleen. Fatty atrophy of the pancreas. Adrenal glands are normal. No hydronephrosis in either kidney. Exophytic upper pole LEFT renal cyst measuring 1.5 cm. Aortic calcification. Normal caliber abdominal aorta. Tiny fat-containing umbilical hernia. Gallbladder is contracted. Fatty atrophy of the pancreas Urine distended bladder. Bladder cystocele. Prior hysterectomy. Normal sigmoid colon. Few sigmoid diverticuli. No evidence of acute diverticulitis. Mild fecal retention in the RIGHT colon and transverse colon. No free air. LEFT colon is decompressed. No evidence of bowel obstruction. No free fluid in the abdomen or pelvis. CT/CT abdomen pelvis wo con [id number] IMPRESSION: 1. Small to moderate esophageal hiatal hernia. 2. Colon is normal in appearance. Mild fecal retention in the RIGHT colon and transverse colon. 3. Large urine distended bladder with cystocele. 4. Mild sigmoid diverticulosis. No evidence of acute diverticulitis. LEFT colo n is decompressed. 5. LEFT upper pole renal cyst measuring 1.5 cm with a small amount of peripher al mineralization. 6. Prior hysterectomy 7. No other acute findings.
--- NOTE | 2025-06-15 15:05 | PC.PHAR ---
Pt states she takes all her medications at 1:30 in the afternoon.
== END 2025-06-15 17:02 | disposition home or self-care (01) ==
PROVIDERS: Emergency Provider Family Medicine; PCP Family Medicine
DX: R33.9 Retention of urine, unspecified (principal); R10.32 Left lower quadrant pain; E78.5 Hyperlipidemia, unspecified; I10 Essential (primary) hypertension; Z79.02 Long term (current) use of antithrombotics/antiplatelets; I25.10 Atherosclerotic heart disease of native coronary artery without angina pectoris; Z79.899 Other long term (current) drug therapy; Z79.82 Long term (current) use of aspirin; Z88.2 Allergy status to sulfonamides; Z88.5 Allergy status to narcotic agent; Z88.8 Allergy status to other drugs, medicaments and biological substances; Z91.041 Radiographic dye allergy status; Z91.040 Latex allergy status; Z95.5 Presence of coronary angioplasty implant and graft
CPT/HCPCS: 36415; 51798; 74176; 80053; 81001; 83690; 85025; 99284

== ENCOUNTER 2025-07-17 08:47 | Outpatient (CLI) | payer MEDICARE, OTHER, SELFPAY ==
--- NOTE | 2025-07-17 09:30 | US_ITS ---
WS: [id number] Bladder ultrasound, 07/17/2025 Clinical Data: bladder retention; need post void residual Comparison: Bladder ultrasound, 08/11/2024 Findings: The patient voided prior to the examination. The prevoid volume was 167.8 mL The bladder volume was measured at 161.2 ml. US/US bladder [id number] Impression: Post voiding bladder volume 161.2 ml.
== END 2025-07-17 08:48 | disposition home or self-care (01) ==
LOC: RAD 08:48
PROVIDERS: PCP Family Medicine; Visit Provider Family Medicine
DX: R33.9 Retention of urine, unspecified (principal)
CPT/HCPCS: 76857

== ENCOUNTER → 2025-08-31 11:26 | Outpatient (BNVA) | payer MEDICARE, OTHER, SELFPAY | PROVIDERS: PCP Family Medicine; Visit Provider Family Medicine | DX: Z00.00 Encounter for general adult medical examination without abnormal findings (principal); I25.10 Atherosclerotic heart disease of native coronary artery without angina pectoris; Z11.59 Encounter for screening for other viral diseases | CPT/HCPCS: 80061; 86803 ==

== ENCOUNTER 2025-09-06 14:35 | Outpatient (CLI) | payer MEDICARE, OTHER, SELFPAY ==
--- NOTE | 2025-09-06 15:00 | XR_ITS ---
WS: [id number] DEXA (DUAL ENERGY X-RAY ABSORPTIOMETRY) Bone mineral density was performed using a [employer]box[employer] machine. HISTORY: postmenopausal COMPARISON: None available. Lumbar spine BMD (L1-L4): 1.018 g/cm2 T score: -1.4 Z score: -0.1 Total hip BMD: Left: 0.894 g/cm2. T score: -0.9 Z score: 0.4 Right: 0.911 g/cm2. T score: -0.8 Z score: 0.6 10 year probability of a major osteoporotic fracture is 21.1%. XR/XR DEXA axial skeleton* [id number] IMPRESSION: OSTEOPENIA based upon the WHO classification for females.
== END 2025-09-06 14:36 | disposition home or self-care (01) ==
LOC: RAD 14:38
PROVIDERS: PCP Family Medicine; Visit Provider Family Medicine
DX: Z13.820 Encounter for screening for osteoporosis (principal); Z78.0 Asymptomatic menopausal state; M85.88 Other specified disorders of bone density and structure, other site
CPT/HCPCS: 77080

== ENCOUNTER → 2025-10-12 12:56 | Outpatient (BNVA) | payer MEDICARE, OTHER, SELFPAY | PROVIDERS: PCP Family Medicine; Visit Provider Family Medicine | DX: E78.5 Hyperlipidemia, unspecified (principal); M85.839 Other specified disorders of bone density and structure, unspecified forearm; M79.7 Fibromyalgia | CPT/HCPCS: 82306; 82310; 83970; 84439; 84443 ==